=== PATIENT | male | born 1965 | race Caucasian/White ===

== ENCOUNTER → 2017-12-12 11:13 | Outpatient (CLI) | payer OTHER, SELFPAY ==
[2017-12-12 13:44] LABS: ALB/GLOB Ratio 0.9 RATIO (0.9-2.4); AST(SGOT) 27 U/L (15-37); Alanine Aminotransfer ALT/SGPT 58 U/L (16-61); Albumin, Serum 3.6 g/dL (3.2-5.0); Alkaline Phosphatase 82 U/L (45-117); Anion Gap 4 (5-15); BUN 16 mg/dL (7-18); BUN/Creat Ratio 19.3 RATIO (10-20); Calcium,Total 8.7 mg/dL (8.5-10.1); Chloride 104 mmol/L (98-107); Cholesterol 283 mg/dL (200); Creatinine, Serum 0.83 mg/dL (0.70-1.30); EST Glomerular Filtration Rate 103 mL/min (>60); Est Glom Filt Rate - Afr Amer 125 mL/min (>60); Globulin 3.8 g/dL (2.2-4.2); Glucose 100 mg/dL (74-106); High Density Lipoprotein 42 mg/dL; Potassium 4.3 mmol/L (3.5-5.1); Protein, Total 7.4 g/dL (6.4-8.2); Sodium Level 139 mmol/L (136-145); Triglycerides 250 mg/dL; Very Low Density Lipoprotein 50 mg/dL (5-40)
== END ==
PROVIDERS: Family Provider Family Medicine; PCP Family Medicine; Visit Provider Family Medicine
DX: E16.2 Hypoglycemia, unspecified (principal); E78.5 Hyperlipidemia, unspecified
CPT/HCPCS: 36415; 80053; 80061

== ENCOUNTER 2018-01-23 05:42 | Day surgery (SDC) | payer OTHER, SELFPAY ==
[2018-01-23 06:05] VITALS: BP 133/93; PULSE 78; RESP 18; TEMP 36.4; O2SAT 97; BMI 26.8
--- NOTE | 2018-01-23 06:07 | PCM.HP.STD ---
Problem List (1) Screening for intestinal cancer Status: Acute History of Present Illness Date of Admission: 01/23/18 The patient is a 52 year old M who presents today for a screening colonoscopy. He has never had a previous examination. He denies bright red blood per rectum or melena. No abdominal pain. No change of bowel habits. No unexpected weight loss. There is no personal or family history of colon polyps or colon cancer. He otherwise has a good feeling of wellness. He has hyperlipidemia managed on medication. He has never had abdominal surgery. Past Medical History Allergies No Known Allergies Allergy (Verified 01/23/18 06:03) Home Medications: Ambulatory Orders Medication Instructions Recorded Simvastatin 10 mg PO DAILY 10/13/14 Cetirizine HCl [Zyrtec] 10 mg PO DAILY 01/22/18 Smoking Status: Never smoker Review of Systems Constitutional: Denies: Weight Change Eyes: Denies: Blurred vision, Vision Change HEENT: Denies: Ear Pain, Eye Pain Cardiovascular: Denies: Chest Pain, Claudication Respiratory: Denies: Cough, Shortness of Breath Gastrointestinal: Denies: Hematemesis, Hematochezia Genitourinary: Denies: Dysuria, Hematuria Musculoskeletal: Denies: Leg Pain Skin: Denies: Jaundice Neurological: Denies: Confusion Psychiatric: Denies: Depression Endocrine: Denies: Change in Body Habitus Hematologic/ Lymphatic: Denies: Easy Bleeding VTE Information - Inpt Only VTE Present on Admission: No Patient Problems: Active and Suspected Problems Screening for intestinal cancer (Acute) - Physical Exam General: Alert, Oriented x3, Cooperative, No apparent distress HEENT: Atraumatic Oral: Moist Mucosa Neck: Supple, Negative Carotid Bruits Lungs: Clear to auscultation Cardiovascular: Regular rate, Regular Rhythm Abdomen: Bowel Sounds Present, Soft, Non Tender, Non-Distended Extremities: No clubbing Skin: No rashes Musculoskeletal: No Tenderness to Palpation of Joints or Extremities Lymphatic: No Cervical, Supraclavicular, or Inguinal Adenopathy Neurological: Cranial nerves II-XII grossly intact Psych/Mental Status: Normal Affect Assessment/Plan Active and Suspected Problems Screening for intestinal cancer (Acute) I am recommending a screening colonoscopy with possible biopsy or polypectomy. The patient has had an opportunity to ask and have questions answered. He is perform the necessary bowel prep. We will proceed as noted. Primary care physician is Dr. Juan Pablo Beckman, III [place] Beckman M.D., F.A.C.S.
--- NOTE | 2018-01-23 06:47 | PCM.OPRPT ---
Problem List (1) Screening for intestinal cancer Status: Acute Report of Operation Date of Procedure: 01/23/18 Pre-Operative Diagnosis: Screening for intestinal cancer Post-Operative Diagnosis: Normal colonoscopy Surgery/Procedure Performed:: Colonoscopy Description of Surgical Findings:: Timeout and informed consent was obtained. 52-year-old gentleman was taken to the endoscopy suite. He was placed in the left lateral decubitus position. Throughout the procedure he received a total of 100 mg Demerol and 5 mg of Versed as intravenous sedation. Digital rectal exam performed. Tight anal tone. 2+ smooth prostate. No mass lesions. Flexible colonoscope inserted in the rectum advanced quite readily through the colon. Some transabdominal pressure was required to get the scope to go to the cecum. The cecum ileocecal valve area was nicely achieved. Bowel prep was very good. The scope was carefully withdrawn from the ascending transverse descending and sigmoid colon. The scope was retroflexed within the rectum and the anorectal verge inspected. All aspects of the colon appeared to be quite unremarkable. Excess fluid and air was aspirated free the procedure was completed with the patient tolerating it well. Impression Normal colonoscopy This is the patient's first screening colonoscopy. Next screening exam recommended in 10 years. Medications were given at 0631. The procedure was started 0634. The cecum was reached at 0638. The procedure was completed at 0644. Cc: Dr. Juan Pablo Beckman, III [place] Beckman M.D., F.A.C.S. Type of Anesthesia:: IV Sedation
[2018-01-23 06:48] VITALS: BP 120/87; BP 133/93; PULSE 88; RESP 18; TEMP 36.2; O2SAT 94
[2018-01-23 06:55] VITALS: BP 120/88; BP 133/93; PULSE 74; RESP 18; O2SAT 92
[2018-01-23 07:00] VITALS: BP 116/89; BP 133/93; PULSE 82; RESP 18; O2SAT 91
[2018-01-23 07:02] VITALS: BP 120/94; BP 133/93; PULSE 76; RESP 18; TEMP 36.7; O2SAT 95
[2018-01-23 07:10] VITALS: BP 133/93
== END 2018-01-23 07:27 | disposition home or self-care (01) ==
LOC: EN 05:43 → AC 05:44
PROVIDERS: Family Provider Family Medicine; PCP Family Medicine; Visit Provider Surgery
PROC: 0DJD8ZZ Inspection of Lower Intestinal Tract, Via Natural or Artificial Opening Endoscopic (ICD-10-PCS; CPT 45378; principal; 2018-01-23 06:25)
DX: Z12.11 Encounter for screening for malignant neoplasm of colon (principal); E78.5 Hyperlipidemia, unspecified; Z79.899 Other long term (current) drug therapy
CPT/HCPCS: 45378; 99152; 99153; J7120

== ENCOUNTER 2018-08-14 15:00 | Outpatient (RCR) | payer OTHER, SELFPAY ==
--- NOTE | 2018-07-06 14:32 | HP.PTEVAL ---
Patient's Visit Information SHARMIN VIVEROS is a 52 year old M referred to Physical Therapy by Doroteo Gutierrez DPM with a diagnosis of Plantarfascial fibromatosis. Date of Evaluation: 07/06/18 Physical Therapist: Micheal Andrews DPT, OC - Visit Plan Frequency: 2 visits. Plan: call when orthotics in for fitting. - Subjective Subjective: ARch pain L and laterally outside of foot. R one hurts also but not nearly as bad. Comfortable at rest. On feet more than a couple hours makes him ache. was on them and climbing ladders this weekend and it hurt bad. L arch hurt to 5/10 . Lingers for a while. R one not as bad 2/10. Heat and compression feels better. Sleep is OK. Sits down a lot more due to pain, more breaks. 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 - Pain L arch Pain Intensity (Out of 10): 1 Pain Intensity Range: 0, 6 - Objective Walks without antalgia today and transfers easily. AROM B LE WFL, DF R foot to 2 degrees adn L to 4 degrees, moderately tight in gastroc and less so in soleus. No LLD. Slight B pes cavus., normal hindfoot. Tender B PF and palpable fibromas(one Right adn two left) in plantar fascia whcih mimic his moderately tender areas. 4+/5 adnkle strength except L eversion whcih is 4/5, no pain. Sensation LE WNL to gross light touch. - Goals Goal 1:: fit for and I in the use of orthotics. Goal Time Frame: 2-4 Weeks - Rehabilitation Potential Physical Therapy Diagnosis: plantar fascia fibromatoisis, appropriate for orthotics. Rehabilitation Potential: Fair - Anticipated Interventions Patient/Client Instruction: Educate patient on: Condition, Plan of Care For the Purpose of:: To decrease pain, To increase tolerance to activity/condition/position Orthotics: Shoe insert Comment: orthoics custom For the Purpose of:: To decrease pain, To increase tolerance to activity/condition/position Thank you for the opportunity to evaluate your patient. For Medicare and Medicare HMO plans, please review the plan of care and approve it. It will need to be FAXED BACK to us at [phone] for Medicare purposes. Please let me know if there are questions or concerns regarding this plan of care. Physician Signature: Date:
--- NOTE | 2018-08-14 15:19 | HP.PTDCSUM ---
HP - PT D/C Summary It has been my pleasure to treat SHARMIN VIVEROS under orders from Doroteo Gutierrez DPM, for the diagnosis of Plantarfascial fibromatosis for a total of 2 visit(s). Discharge Date: Please see the following information for a summary of their discharge status. - Subjective Subjective: Bought new shoes just for these orthotics. - Pain L arch Pain Intensity (Out of 10): 1 - Objective Objective/Function: Good fit in shoe. [place] some pressure medially on heel but recommended he try to get used to it and call if it needs modified, shaved or cut off. - Goals Goal 1:: fit for and I in the use of orthotics. Goal Progress: Goal Met - Plan Plan: D/C to home orthotic use. - D/C Information If there are questions or concerns regarding this patient's physical therapy, please feel free to call me at [phone]. Thank you for the referral of this patient. Sincerely, Micheal Andrews, DPT, OC
== END 2018-08-14 19:00 | disposition home or self-care (01) ==
LOC: PT 15:00
PROVIDERS: Family Provider Family Medicine; PCP Family Medicine; Referring Provider Podiatrist Foot & Ankle Surgery; Visit Provider Podiatrist Foot & Ankle Surgery
DX: M72.2 Plantar fascial fibromatosis (principal)
CPT/HCPCS: 97161; 97760; 97763

== ENCOUNTER → 2018-11-26 06:19 | Outpatient (CLI) | payer OTHER, SELFPAY ==
[2018-11-26 08:19] LABS: ALB/GLOB Ratio 0.9 RATIO (0.9-2.4); AST(SGOT) 26 U/L (15-37); Alanine Aminotransfer ALT/SGPT 49 U/L (16-61); Albumin, Serum 3.6 g/dL (3.2-5.0); Alkaline Phosphatase 91 U/L (45-117); Anion Gap 5 (5-15); BUN 14 mg/dL (7-18); BUN/Creat Ratio 16.3 RATIO (10-20); Calcium,Total 8.5 mg/dL (8.5-10.1); Chloride 107 mmol/L (98-107); Cholesterol 220 mg/dL (200); Creatinine, Serum 0.86 mg/dL (0.70-1.30); EST Glomerular Filtration Rate 99 mL/min (>60); Est Glom Filt Rate - Afr Amer 120 mL/min (>60); Globulin 3.8 g/dL (2.2-4.2); Glucose 111 mg/dL (74-106); High Density Lipoprotein 33 mg/dL; Potassium 4.1 mmol/L (3.5-5.1); Protein, Total 7.4 g/dL (6.4-8.2); Sodium Level 139 mmol/L (136-145); Triglycerides 231 mg/dL; Very Low Density Lipoprotein 46 mg/dL (5-40)
== END ==
PROVIDERS: Family Provider Family Medicine; PCP Family Medicine; Referring Provider Family Medicine; Visit Provider Family Medicine
DX: E78.5 Hyperlipidemia, unspecified (principal)
CPT/HCPCS: 36415; 80053; 80061

== ENCOUNTER 2019-07-16 06:57 | Emergency (ER) | payer OTHER, SELFPAY ==
[2019-07-16 06:58] VITALS: BP 143/93; PULSE 91; RESP 16; TEMP 36.6; O2SAT 97; BMI 27.7
--- NOTE | 2019-07-16 07:18 | CT_ITS ---
STUDY: CT BRAIN WITHOUT CONTRAST REASON FOR EXAM: Male, 53 years old. LEFT FACIAL TINGLING RADIATION DOSAGE (If Supplied By Facility): CTDIvol = ( 44.99 ) mGy, DLP = ( 796.11 ) mGycm TECHNIQUE: Transaxial CT imaging of the brain was performed without administration of intravenous contrast material. Individualized dose optimization techniques were used for this CT. COMPARISON: No relevant priors. FINDINGS: Normal soft tissue structures. Normal calvarium. Normal size ventricles and extra-axial spaces for the patient's age. Normal white matter tracts of the cerebral hemispheres. Normal basal ganglia and thalami. Normal brainstem. Normal cerebellum. There is no intracranial hemorrhage. There are no findings of an acute ischemic infarction. Normal visualized paranasal sinuses. CT/Brain/Head without Contrast IMPRESSION: Normal unenhanced CT scan of the brain. Electronically Signed: Wero Thacker MD at 8:01 EDT Tel , Service support ,
--- NOTE | 2019-07-16 08:11 | ED.DCSUM_ITS ---
- ER Visit Summary Date of Service: 07/16/19 Chief Complaint: Acute on chronic hypertension and subjective left facial tingling History of Present Illness: The patient is a 53 M past medical history of hypertension high cholesterol. No cardiac history nor any history of TIA or stroke. 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 And states that he has had subjective left facial tingling since that time. No headache. No chest pain. No trouble using his arms or legs. No trouble with his speech. No trouble with his balance. No visual change. Physical Examination: White male no acute distress initial blood pressure 143/93. He does not look septic or toxic. H EENT exam normal. Pupils are unreactive light. Extra motions are intact. No facial droop. Tongue midline. Normal speech. Neck nontender. Lungs clear to auscultation bilaterally. Heart regular rhythm no murmur. Abdomen soft nontender. Patient moving all 4 extremities. Neurovascularly intact. 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 Equal symmetrical dorsi plantarflexion 5/5. Fingertip to nose [id number] within normal limits. Back nontender. Skin unremarkable. Neurologic exam is completely normal. NIH is 0. He really has no objective findings on neurologic exam. He can wrinkle his forehead. His ocular motions are intact. There is no facial droop. He has normal speech. Subjectively he has tight sensation in both sides of his face. Motor and sensory of both upper and lower extremities are unremarkable. And he got up and walk without any difficulty. No ataxia. No trouble with his balance or strength. Test Results: CAT scan of his brain without contrast read by the radiologist reviewed by me was read as normal. Emergency Department Course and Treatment: Exam at 8:10 AM patient is doing well. His exam is unchanged. His neurologic exam remains completely normal with again an NIH of 0. Treatment Plan: Follow-up with his primary care physician. Return if worse. Disposition: Discharge Impression: Acute on chronic hypertension Subjective left facial paresthesia of uncertain etiology This note was generated with [employer] software. It may contain incorrect words, spelling, and punctuation that were not noted in review of the chart prior to signing ED Disposition - Plan for ED Patient: Referrals: Juan Pablo Beckman III, MD [Primary Care Provider] -
--- NOTE | 2019-07-16 08:14 | ED.DEP ---
ED Disposition - Plan for ED Patient: Disposition: Home or Assisted Living Instructions: HYPERTENSION, Established Referrals: Juan Pablo Beckman III, MD [Primary Care Provider] - 1 Week Additional Instructions: Follow-up with your doctor in a week or so with daily blood pressure readings to see if you need to do any medication adjustments or not. The facial tingling is unremarkable on exam at this time. You have a otherwise normal neurologic exam. Your CAT scan was normal. If you develop trouble moving her arms or legs or weakness in your arms or legs need to return. Any trouble speaking with your vision again need to be seen. However most likely this will resolve.
== END 2019-07-16 08:19 | disposition home or self-care (01) ==
PROVIDERS: Emergency Provider Emergency Medicine; Family Provider Family Medicine; PCP Family Medicine
DX: I10 Essential (primary) hypertension (principal); R20.2 Paresthesia of skin; E78.00 Pure hypercholesterolemia, unspecified; Z79.899 Other long term (current) drug therapy
CPT/HCPCS: 70450; 99282

== ENCOUNTER → 2020-07-03 07:03 | Outpatient (CLI) | payer OTHER, SELFPAY ==
[2020-07-03 08:29] LABS: ALB/GLOB Ratio 0.9 RATIO (0.9-2.4); AST(SGOT) 42 U/L (15-37); Alanine Aminotransfer ALT/SGPT 73 U/L (16-61); Albumin, Serum 3.5 g/dL (3.2-5.0); Alkaline Phosphatase 97 U/L (45-117); Anion Gap 6 (5-15); BUN 14 mg/dL (7-18); BUN/Creat Ratio 16.5 RATIO (10-20); Calcium,Total 8.9 mg/dL (8.5-10.1); Chloride 106 mmol/L (98-107); Cholesterol 216 mg/dL (200); Creatinine, Serum 0.85 mg/dL (0.70-1.30); EST Glomerular Filtration Rate 100 mL/min (>60); Est Glom Filt Rate - Afr Amer 121 mL/min (>60); Globulin 3.7 g/dL (2.2-4.2); Glucose 118 mg/dL (74-106); High Density Lipoprotein 48 mg/dL; Potassium 3.8 mmol/L (3.5-5.1); Protein, Total 7.2 g/dL (6.4-8.2); Sodium Level 140 mmol/L (136-145); Triglycerides 179 mg/dL; Very Low Density Lipoprotein 36 mg/dL (5-40)
== END ==
PROVIDERS: PCP Family Medicine; Referring Provider Family Medicine; Visit Provider Family Medicine
DX: I10 Essential (primary) hypertension (principal); E78.5 Hyperlipidemia, unspecified
CPT/HCPCS: 36415; 80053; 80061

== ENCOUNTER 2020-12-20 13:36 | Outpatient (RCR) | payer OTHER, SELFPAY | END 2021-02-20 23:59 | LOC: IMMUN 13:36 | PROVIDERS: PCP Family Medicine; Visit Provider Family Medicine | DX: Z23 Encounter for immunization (principal) | CPT/HCPCS: 0001A; 0002A; 91300 ==

== ENCOUNTER → 2021-07-13 10:30 | Outpatient (CLI) | payer OTHER, SELFPAY ==
[2021-07-13 12:49] LABS: Anion Gap 8 (5-15); BUN 12 mg/dL (7-18); BUN/Creat Ratio 13.2 RATIO (10-20); Calcium,Total 8.7 mg/dL (8.5-10.1); Chloride 106 mmol/L (98-107); Cholesterol 196 mg/dL (200); Creatinine, Serum 0.91 mg/dL (0.70-1.30); EST Glomerular Filtration Rate 92 mL/min (>60); Est Glom Filt Rate - Afr Amer 111 mL/min (>60); Glucose 117 mg/dL (74-106); High Density Lipoprotein 46 mg/dL; PSA,Total - Annual Screen 1.21 ng/mL (0.00-4.00); Potassium 4.1 mmol/L (3.5-5.1); Sodium Level 139 mmol/L (136-145); Thyroid Stim Hormone (TSH) 2.13 uIU/mL (0.358-3.74); Triglycerides 164 mg/dL; Very Low Density Lipoprotein 33 mg/dL (5-40)
== END ==
PROVIDERS: PCP Family Medicine; Referring Provider Family Medicine; Visit Provider Family Medicine
DX: Z00.00 Encounter for general adult medical examination without abnormal findings (principal); Z12.5 Encounter for screening for malignant neoplasm of prostate; I10 Essential (primary) hypertension
CPT/HCPCS: 36415; 80048; 80061; 84153; 84443; G0103

== ENCOUNTER → 2022-08-12 | Outpatient (CLI) | payer OTHER, SELFPAY ==
[2022-08-12 08:09] LABS: Hemoglobin A1c 5.8 % (3.8-5.6)
[2022-08-12 08:37] LABS: ALB/GLOB Ratio 0.9 RATIO (0.9-2.4); AST(SGOT) 29 U/L (15-37); Alanine Aminotransfer ALT/SGPT 55 U/L (16-61); Albumin, Serum 3.4 g/dL (3.2-5.0); Alkaline Phosphatase 85 U/L (45-117); Anion Gap 6 (5-15); BUN 14 mg/dL (7-18); BUN/Creat Ratio 14.7 RATIO (10-20); Calcium,Total 8.7 mg/dL (8.5-10.1); Chloride 106 mmol/L (98-107); Cholesterol 296 mg/dL (200); Creatinine, Serum 0.96 mg/dL (0.70-1.30); EST Glomerular Filtration Rate 86 mL/min (>60); Est Glom Filt Rate - Afr Amer 105 mL/min (>60); Globulin 3.7 g/dL (2.2-4.2); Glucose 117 mg/dL (74-106); High Density Lipoprotein 38 mg/dL; Protein, Total 7.1 g/dL (6.4-8.2); Sodium Level 137 mmol/L (136-145); Thyroid Stim Hormone (TSH) 6.61 uIU/mL (0.358-3.74); Triglycerides 441 mg/dL
== END | disposition home or self-care (01) ==
PROVIDERS: PCP Family Medicine; Referring Provider Family Medicine; Visit Provider Family Medicine
DX: Z00.00 Encounter for general adult medical examination without abnormal findings (principal); E78.5 Hyperlipidemia, unspecified
CPT/HCPCS: 36415; 80053; 80061; 83036; 84403; 84443

== ENCOUNTER → 2022-12-04 | Outpatient (CLI) | payer OTHER, SELFPAY ==
[2022-12-04 08:37] LABS: Cholesterol 203 mg/dL (200); Free T3 3.5 pg/mL (2.18-3.98); High Density Lipoprotein 40 mg/dL; T4 Free Direct 0.95 ng/dL (0.76-1.46); Thyroid Stim Hormone (TSH) 5.34 uIU/mL (0.358-3.74); Triglycerides 195 mg/dL; Very Low Density Lipoprotein 39 mg/dL (5-40)
== END | disposition home or self-care (01) ==
LOC: LAB 06:35
PROVIDERS: PCP Family Medicine; Referring Provider Family Medicine; Visit Provider Family Medicine
DX: E78.5 Hyperlipidemia, unspecified (principal); E03.9 Hypothyroidism, unspecified
CPT/HCPCS: 36415; 80061; 84439; 84443; 84481

== ENCOUNTER → 2023-07-04 | Outpatient (CLI) | payer OTHER, SELFPAY ==
--- NOTE | 2023-07-06 12:36 | STRESSREP ---
Stress Test Report Date: 07/04/2023 Procedure: Exercise tolerance test/imaging study Indications: Chest pain Consent: Per the patient Procedure: The patient exercised on a Linus protocol for 10 minutes and 16 seconds achieving a peak heart rate of 153 bpm (93% predicted maximal heart rate) with a peak blood pressure 160/70 mmHg and a peak MET capacity of 13.4 METs. The baseline ECG demonstrated normal sinus rhythm. The peak exercise ECG demonstrated no significant ischemic changes. EKG during recovery revealed no significant ischemic changes [There were no cardiac dysrhythmias pretest, during exercise, or recovery]. The functional capacity was considered excellent for age. There was [no complaint of chest discomfort during exercise or recovery]. The examination was discontinued secondary to achieving target heart rate. Impression: 1. Technically adequate (percent predicted maximal heart rate greater than 85%) exercise tolerance test 2. Stress test is negative for exercise-induced EKG changes of ischemia 3. The test test is negative for exercise-induced chest pain 4. Functional capacity is excellent for age 5. Nuclear images pending Myocardial perfusion imaging study: Technique: The patient was injected with 11 mCi of technetium 99m Cardiolite and subsequently rest SPECT Cardiolite nuclear imaging was obtained in the horizontal long, vertical long, and short axis views. The patient exercised on a Linus protocol. Please see above for details. The patient was injected with 34.2 mCi of technetium 99m Cardiolite and subsequently stress SPECT Cardiolite nuclear imaging was obtained in the horizontal long, vertical long, and short axis views. A gated Cardiolite study at peak stress was obtained. Interpretation: Rest and stress SPECT Cardiolite nuclear imaging status post realignment, normalization, and attenuation correction, demonstrates no evidence of significant ischemia or infarction. The gated Cardiolite study demonstrates no significant regional wall motion abnormalities. The reported LVEF is 59%. Impression: 1. There is no evidence of significant ischemia or infarction. 2. The gated Cardiolite study reports an LVEF of 59%. This note was generated with [employer] software. It may contain incorrect words, spelling, and punctuation that were not noted in checking the note before signing.
== END | disposition home or self-care (01) ==
PROVIDERS: PCP Family Medicine; Referring Provider Family Medicine; Visit Provider Family Medicine
DX: R06.02 Shortness of breath (principal); R07.9 Chest pain, unspecified
CPT/HCPCS: 78452; 93017; A9500; A4216

== ENCOUNTER → 2023-07-28 | Outpatient (CLI) | payer OTHER, SELFPAY ==
[2023-07-28 07:45] LABS: Anion Gap 6 (5-15); BUN 15 mg/dL (7-18); BUN/Creat Ratio 15.9 RATIO (10-20); Calcium,Total 8.5 mg/dL (8.5-10.1); Chloride 105 mmol/L (98-107); Cholesterol 209 mg/dL (200); Creatinine, Serum 0.94 mg/dL (0.70-1.30); EST Glomerular Filtration Rate 87 mL/min (>60); Est Glom Filt Rate - Afr Amer 106 mL/min (>60); Glucose 128 mg/dL (74-106); High Density Lipoprotein 46 mg/dL; Potassium 3.7 mmol/L (3.5-5.1); Sodium Level 140 mmol/L (136-145); Thyroid Stim Hormone (TSH) 4.73 uIU/mL (0.358-3.74); Triglycerides 214 mg/dL; Very Low Density Lipoprotein 43 mg/dL (5-40)
== END | disposition home or self-care (01) ==
LOC: LAB 06:34
PROVIDERS: PCP Family Medicine; Referring Provider Family Medicine; Visit Provider Family Medicine
DX: I10 Essential (primary) hypertension (principal); R06.02 Shortness of breath
CPT/HCPCS: 36415; 80048; 80061; 84443

== ENCOUNTER → 2024-05-26 | Outpatient (CLI) | payer OTHER, SELFPAY ==
[2024-05-26 08:39] LABS: Anion Gap 5 (5-15); BUN 17 mg/dL (7-18); Chloride 106 mmol/L (98-107); Cholesterol 198 mg/dL (200); Creatinine, Serum 0.85 mg/dL (0.70-1.30); EST Glomerular Filtration Rate 98 mL/min (>60); Est Glom Filt Rate - Afr Amer 119 mL/min (>60); Glucose 131 mg/dL (74-106); High Density Lipoprotein 46 mg/dL; Potassium 3.9 mmol/L (3.5-5.1); Sodium Level 138 mmol/L (136-145); Triglycerides 166 mg/dL; Very Low Density Lipoprotein 33 mg/dL (5-40)
== END | disposition home or self-care (01) ==
LOC: LAB 06:42
PROVIDERS: PCP Family Medicine; Referring Provider Family Medicine; Visit Provider Family Medicine
DX: I10 Essential (primary) hypertension (principal)
CPT/HCPCS: 36415; 80048; 80061

== ENCOUNTER → 2024-05-27 | Outpatient (CLI) | payer OTHER, SELFPAY ==
--- NOTE | 2024-05-27 16:55 | RAD_ITS ---
INDICATION: INJURY EXAMINATION/TECHNIQUE: X-RAY - RIGHT XR Shoulder Min 2 Views COMPARISON: No previous relevant examinations for comparison. FINDINGS: SOFT TISSUES: No soft tissue swelling or gas. No radiopaque foreign body. BONES/JOINTS: 1. No acute fracture or subluxation.. Normal alignment. Preservation of the joint space.. No sclerotic or destructive changes observed. 2. There is normal glenohumeral motion. There is normal alignment of the acromioclavicular joint. 3. The clavicle, acromion, scapula and rib cage have normal appearance. RAD/Shoulder min 2 Views IMPRESSION: 1. No fracture malalignment or focal bony or joint space abnormality involving the shoulder.. Electronically Signed: Black Gutiérrez MD at 19:57 EDT ,
== END | disposition home or self-care (01) ==
PROVIDERS: PCP Family Medicine; Referring Provider Family Medicine; Visit Provider Family Medicine
DX: S49.91XA Unspecified injury of right shoulder and upper arm, initial encounter (principal)
CPT/HCPCS: 73030

== ENCOUNTER → 2024-07-26 | Outpatient (CLI) | payer OTHER, SELFPAY | END | disposition home or self-care (01) | PROVIDERS: PCP Family Medicine; Referring Provider Family Medicine; Visit Provider Family Medicine | DX: S49.91XA Unspecified injury of right shoulder and upper arm, initial encounter (principal) | CPT/HCPCS: 73221 ==

== ENCOUNTER 2024-09-27 16:11 | Outpatient (RCR) | payer OTHER, SELFPAY ==
--- NOTE | 2024-10-01 13:37 | HP.PTEVAL ---
Patient's Visit Information Visit Information Visit Information: SHARMIN IVVEROS is a 58 year old M referred to Physical Therapy by Dr. 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 Date of Evaluation: 09/27/24 Physical Therapist: Luis Akbar DPT Visit Plan Frequency: 1x/Week Duration: 6 Weeks Plan: 1) RTC strengthening, periscapular strengthening. 2) DFM to biceps tendon 3) Progress end range motion of R shoulder. Subjective Subjective: Pt. is here today for his initial evaluation with diagnosis of superior glenoid labrum lesion of R shoulder. Pt. reports having an MRI and having a labral tear. He reports no N/T in either UE. Pt. reports increased pain while sleeping and with over head movements. Pt. is able to work with out much limitation. Pt. reports not doing as much with his shoulder secondary to increased pain. Pt. has refrained from much [place] activities secondary to pain. Pt. reports no major grinding in his shoulder with activities. Pain located at anterior shoulder with above activities. Pt. is hopeful to reduce symptoms in order to complete all work and daily activities without limitations. Pain R shoulder: Pain Intensity (Out of 10): 2 Pain Intensity Range: 2 and 6 Objective Objective: POSTURE: Pt. has fairly normal posture in stance. Pt. has slight increased in thoracic kyphosis and rounded shoulders, but able to improve with VCing. PALPATION: Pt. has tenderness to anterior aspects of R shoulder along long bicipital groove. NEURO: normal throughout. ROM: R shoulder: flexion 170deg increase NW at end range, abd 165deg increase at end range. functional ER C4, functional IR L3. Pt. has mild increase in symptoms with both functional ER/IR motions. R shoulder PROM: flexion 175deg increase NW, abd 175deg increase NW, ER at 90de of abd 85deg, IR at 90deg of abd 40deg increase nW. MMT: R shoulder: flexion 15.4# increase NW, abd 13.9#, ext 23.9#, ER 11.2#, IR 16.8#. Balance/Special Test Scores Quick DASH Score: 11.3625 Goals Goal 1:: LTG: Pt. to be I with HEP. Goal Time Frame: 4-6 Weeks Goal 2:: LTG: Pt. to have full R shoulder ROM without increase in symptoms. Goal Time Frame: 4-6 Weeks Goal 3:: LTG: Pt. to have symmetrical strength between BUEs without increase in symptoms. Goal Time Frame: 4-6 Weeks Goal 4:: LTG: Pt. to complete all work and recreational activities without increase in symptoms. Goal Time Frame: 4-6 Weeks Rehabilitation Potential Physical Therapy Diagnosis: Pt. has signs and symptoms consistent with superior glenoid labral tear. Pt. has some slight loss of end range of motion and some weakness in his R shoulder. He would benefit from PT to address the above limitations progressing back to all recreational and work activities without limitations. Rehabilitation Potential: Good Anticipated Interventions Patient/Client Instruction: Educate patient on: Condition, Plan of Care, Risk Factors and Benefits of Fitness Program For the Purpose of:: To foster healthy habits, To improve decision making, To facilitate caregiver knowledge, To improve self management, To prevent re-injury and To improve ability to perform tasks related to life management Therapeutic Exercise to Include: Strength training, Power training, Postural training, Flexibilty training, Passive ROM, Active ROM and Scapular Strength/Stabilization For the Purpose of:: To decrease pain, To increase ROM, To improve nutrient delivery to tissue, To increase oxygenation perfusion, To improve muscle performance and motor function, To improve ability to perform ADL's and To increase tolerance to activity/condition/position Text: Thank you for the opportunity to evaluate your patient. For Medicare and Medicare HMO plans, please review the plan of care and approve it. It will need to be FAXED BACK to us at [phone] for Medicare purposes. For Medicare only, by signing this I certify the plan of care. Please let me know if there are questions or concerns regarding this plan of care. Physician Signature: Date:
== END 2024-09-27 19:00 | disposition home or self-care (01) ==
LOC: PT 16:11
PROVIDERS: PCP Family Medicine; Visit Provider Student in an Organized Health Care Education/Training Program
DX: S43.431D Superior glenoid labrum lesion of right shoulder, subsequent encounter (principal); S46.011D Strain of muscle(s) and tendon(s) of the rotator cuff of right shoulder, subsequent encounter; M19.011 Primary osteoarthritis, right shoulder
CPT/HCPCS: 97161

== ENCOUNTER → 2024-11-10 | Outpatient (CLI) | payer OTHER, SELFPAY ==
[2024-11-10 15:26] LABS: Absolute Lymphocyte Count 2.68 X10^3/uL (0.83-4.51); Absolute Neutrophil Count 7.2 X10^3/uL (2.0-7.7); Basophil# 0.05 X10^3/uL; Basophil% 0.5 % (0-1); Eosinophil# 0.08 X10^3/uL; Eosinophils% 0.7 % (0-5); Hematocrit 48.3 % (40-54); Hemoglobin 15.5 g/dL (13.0-16.5); Lymphocyte # 2.68 X10^3/ul (0.83-4.51); Lymphocyte % 24.7 % (19-41); Mean Corp Hgb Conc 32.1 g/dL (32-36); Mean Corpuscular Hgb 28.1 pg (27.0-32.0); Mean Corpuscular Volume 87.7 fL (80-94); Mean Platelet Vol. 11.2 fl (6.2-12.0); Monocyte# 0.75 X10^3/uL; Monocyte% 6.9 % (0-10); NRBC Flagged by Analyzer 0 % (0-5); Neutrophil % 66.3 % (47-70); Platelet Count 230 K/mm3 (150-450); RBC Distribution Width CV 12.9 % (11.6-14.6); RBC Distribution Width SD 41.8 fl (35.1-43.9); Red Blood Count 5.51 M/mm3 (4.6-6.2); White Blood Count 10.9 K/mm3 (4.4-11.0)
[2024-11-10 15:50] LABS: ALB/GLOB Ratio 1.3 RATIO (0.9-2.4); AST(SGOT) 30 U/L (<=37); Alanine Aminotransfer ALT/SGPT 60 U/L (<=46); Alkaline Phosphatase 72 U/L (40-129); Anion Gap 12 (5-15); BUN 16 mg/dL (4-19); BUN/Creat Ratio 21.3 RATIO (10-20); Calcium 9.4 mg/dL (7.6-11.0); Carbon Dioxide 23.2 mmol/L (22.0-29.0); Chloride 103 mmol/L (96-108); Creatinine, Serum 0.7 mg/dL (0.8-1.3); EST Glomerular Filtration Rate 106 (>60); Globulin 3.1 g/dL (2.2-4.2); Glucose 103 mg/dL (70-99); Lipase 38 U/L (13-75); Potassium 4.2 mmol/L (3.3-5.1); Sodium Level 138 mmol/L (133-145); Total Bilirubin 0.46 mg/dL (0.00-1.30)
== END | disposition home or self-care (01) ==
LOC: MFPLAB 12:24
PROVIDERS: PCP Family Medicine; Referring Provider Family Medicine; Visit Provider Family Medicine
DX: R10.9 Unspecified abdominal pain (principal)
CPT/HCPCS: 36415; 80053; 83690; 85025

== ENCOUNTER → 2024-11-19 | Outpatient (CLI) | payer OTHER, SELFPAY ==
--- NOTE | 2024-11-19 07:23 | US_ITS ---
PROCEDURE: ABDOMEN COMPLETE REASON FOR EXAM: ABD PAIN COMPARISON: None FINDINGS: Liver: Unremarkable echotexture. 15.7 cm in length. Gallbladder: Question a tiny amount of layering sludge versus artifact. No visualized stones, sludge, wall thickening or pericholecystic fluid. Reportedly, sonographic Alcaraz's was negative. Common bile duct: Unremarkable, CBD measures 5 mm. Pancreas: Partially obscured by bowel gas. Visualized portions are sonographically unremarkable. Right kidney: 11.2 cm in length. 0.8 x 0.7 x 0.7 cm cyst inferiorly. Left kidney: 10.7 cm in length. Unremarkable. Spleen: Mild splenomegaly, 13.6 cm greatest dimension. Aorta: Unremarkable, maximum diameter 2.4 cm. IVC: Visualized portions are unremarkable. Other: No visualized free fluid. US/Abdomen Complete IMPRESSION: 1. No acute abnormality. If unexplained symptoms persist, consider CT. 2. Mild splenomegaly. 3. Additional description as above. Reading Location: [id number]
== END | disposition home or self-care (01) ==
LOC: US 07:22
PROVIDERS: PCP Family Medicine; Referring Provider Family Medicine; Visit Provider Family Medicine
DX: R10.9 Unspecified abdominal pain (principal)
CPT/HCPCS: 76700

== ENCOUNTER → 2025-05-20 | Outpatient (CLI) | payer OTHER, SELFPAY ==
--- OUTSIDE RECORDS SUMMARY | 2025-05-20 06:35 | XMS RPT_ITS | CCD ---
Author Organization [facility] CliniSyme Care Team Providers Care Dust Collector Treater Name Role Phone Carlene Hall LPN Unavailable Unavailab Carlene Aj LPN Unavailable Unavailab Dr. Catalino Marti Primary Care Provider [phone] Valerie, Dr. Bae Referring Provider [phone] Sara Lo Attending Provider [phone] Valerie, Dr. Bae Other Provider Valerie, Dr. Bae Primary Care Provider [phone] Valerie, Dr. Bae Referring Provider [phone] Sara Lo Attending Provider [phone] Valerie, Dr. Bae Other Provider Valerie OSPINA, Dr. Bae Primary Care Provider [phone] Dr. Alvaro Lewis DO Attending Provider Valerie OSPINA, Dr. Bae Referring Provider [phone] Neelam RESOURCE CONSERVATION MANAGER-CFelipe Attending Provider Valerie OSPINA, Dr. Bae Attending Provider [phone] Catalino Padilla Referring Unavailable Padilla, Catalino Attending Unavailable Padilla, Catalino Primary Care Unavailable Felipe Richter NP Attending Unavailable Padilla, Catalino Primary Care Unavailable Padilla, Catalino Referring Unavailable Padilla, Catalino Primary Care Unavailable Padilla, Catalino Referring Unavailable Padilla, Catalino Attending Unavailable Padilla, Catalino Primary Care Unavailable Padilla, Catalino Referring Unavailable Padilla, Catalino Attending Unavailable Padilla, Catalino Primary Care Unavailable Alvaro Lewis Attending Unavailable Padilla, Catalino Primary Care Unavailable Padilla, Catalino Referring Unavailable Padilla, Catalino Attending Unavailable Padilla, Catalino Primary Care Unavailable Padilla, Catalino Referring Unavailable Padilla, Catalino Attending Unavailable Medications Current Medications Medication Drug Class(es) Dates Sig (Normalized) Sig (Original) amLODIPine 5 mg oral tablet (6 sources) Dihydropyridine Calcium Channel Jordyn Start: 07-16-2019 take 1 tablet by mouth once daily Amlodipine 5 MG tablet Active 5 mg PO DAILY July 16, 2019 12:00am azithromycin 250 mg oral tablet (5 sources) Macrolide Antimicrobial Start: 10-31-2024 Azithromycin (Zithromax Z-Kishore) 250 mg tablet Active 0 PO .COMPLEX 6 0 October 31, 2024 1:00am For 250 mg dose pack: take 500 mg today (day 1), then 250 mg for 4 days (days 2-5) PO Start: 02-19-2017 End: 02-24-2017 ZITHROMAX Z-KISHORE 250 MG TABS Take 2 pills on day 1 then 1 pill days 2 through 5 AZITHROMYCIN [id number] Anirudh SHAY cetirizine hydrochloride 10 mg oral capsule (6 sources) Histamine-1 Receptor Antagonist Start: 01-22-2018 take 1 capsule by mouth once daily Cetirizine (Zyrtec) 10 MG capsule Active 10 mg PO DAILY January 22, 2018 12:00am lisinopril 5 mg oral tablet (6 sources) Angiotensin Converting Enzyme Inhibitor Start: 07-16-2019 take 1 tablet by mouth once daily Lisinopril 5 MG tablet Active 5 mg PO DAILY July 16, 2019 12:00am simvastatin 20 mg oral tablet (8 sources) HMG-CoA Reductase Inhibitor Start: 06-06-2014 take 20 mg by mouth once daily Simvastatin Active 20 mg PO DAILY October 13, 2014 1:00am Completed/Discontinued Medications Medication Drug Class(es) Dates Sig (Normalized) Sig (Original) benzonatate 100 mg oral capsule (2 sources) Non-narcotic Antitussive Start: 02-17-2017 End: 02-27-2017 TESSALON PERLES 100 MG CAPS Take 1 capsule every 8 hours as needed for cough BENZONATATE [id number] Anirudh SHAY LORATADINE TABS (2 sources) Start: 06-06-2014 CLARITIN TABS as directed LORATADINE TABS [id number] Rody Sheila predniSONE 20 mg oral tablet (3 sources) Start: 10-31-2024 End: 11-05-2024 take 2 tablets by mouth once daily Prednisone 20 mg tablet Discontinued 40 mg PO daily 10 5 0 October 31, 2024 1:00am November 04, 2024 1:00am November 05, 2024 1:11am Problems Active Problems Problem Classification Problem Date Documented Da te Episodic/Chronic Essential hypertension (1 source) Essential (primary) hypertension; Translations: [Essential (primary) hypertension] Onset: 06-15-2024 Chronic Osteoarthritis (1 source) Primary osteoarthritis, right shoulder; Translations: [Primary osteoarthritis, right shoulder] Onset: 04-15-2025 Chronic Other congenital anomalies (2 sources) Other specified congenital deformities of feet; Translations: [Other specified congenital deformities of feet] Onset: 06-06-2014 06-06-2014 Chronic Other screening for suspected conditions (not mental disorders or infectious disease) (6 sources) Patient encounter status; Translations: [Encounter for screening for malignant neoplasm of intestinal tract, unspecified] 01-23-2018 Episodic Sprains and strains (2 sources) Superior glenoid labrum lesion of right shoulder, initial encounter; Translations: [Strain of muscle(s) and tendon(s) of the rotator cuff of right shoulder, initial encounter] Onset: 04-15-2025 Episodic Past or Other Problems Problem Classification Problem Date Documented Da te Episodic/Chronic Abdominal pain (1 source) Unspecified abdominal pain; Translations: [Unspecified abdominal pain] Onset: 12-01-2024 Episodic Other aftercare (2 sources) Follow-up orthopedic assessment; Translations: [Other orthopedic aftercare] Onset: 11-03-2014 11-08-2014 Episodic Other injuries and conditions due to external causes (1 source) Unspecified injury of right shoulder and upper arm, initial encounter; Translations: [Unspecified injury of right shoulder and upper arm, initial encounter] Onset: 08-22-2024 Episodic Other non-traumatic joint disorders (2 sources) Pain in unspecified ankle and joints of unspecified foot; Translations: [Pain in unspecified ankle and joints of unspecified foot] Onset: 06-06-2014 06-06-2014 Episodic Other upper respiratory disease (2 sources) Congestion of nasal sinus; Translations: [Other specified disorders of nose and nasal sinuses] Onset: 02-17-2017 02-17-2017 Episodic Other upper respiratory infections (8 sources) Upper respiratory infection; Translations: [Acute upper respiratory infection, unspecified] Onset: 02-17-2017 02-17-2017 Episodic Results Test Name Value Interpretation Reference Range Facility Abdomen Completeon Abdomen Complete [facility] [address] [place] [address] Abdomen Complete MR#: [id number] Acct: [id number] Name: SHARMIN ALCARAZ Rep #: [id number] : 1965 M 58 From: Jordy Oreilly MD PCP: Dr. Catalino Padilla MD Status: REG CLI Study: Abdomen Complete Date of Exam: 11/19/24 Exam# [id number] Ordering Dr: Catalino Padilla MD PROCEDURE: ABDOMEN COMPLETE REASON FOR EXAM: ABD PAIN COMPARISON: None FINDINGS: Liver: Unremarkable echotexture. 15.7 cm in length. Gallbladder: Question a tiny amount of layering sludge versus artifact. No visualized stones, sludge, wall thickening or pericholecystic fluid. Reportedly, sonographic Alcaraz's was negative. Common bile duct: Unremarkable, CBD measures 5 mm. Pancreas: Partially obscured by bowel gas. Visualized portions are sonographically unremarkable. Right kidney: 11.2 cm in length. 0.8 x 0.7 x 0.7 cm cyst inferiorly. Left kidney: 10.7 cm in length. Unremarkable. Spleen: Mild splenomegaly, 13.6 cm greatest dimension. Aorta: Unremarkable, maximum diameter 2.4 cm. IVC: Visualized portions are unremarkable. Other: No visualized free fluid. US/Abdomen Complete IMPRESSION: 1. No acute abnormality. If unexplained symptoms persist, consider CT. 2. Mild splenomegaly. 3. Additional description as above. Reading Location: [facility] CC: Dr. Catalino Padilla MD Agricultural Production Engineer: Signed Normal [facility] Absolute neutrophil countOrd ered By: Catalino Padilla on 11-10-2024 Neutrophils (Bld) [#/Vol] 7.2 10*3/uL 2.0-7.7 [facility] BUN/creatinine ratioOrdered By: Catalino Padilla on 11-10-2024 Urea nitrogen/Creatinine [Mass ratio] 21.3 mg/mg High 10-20 [facility] Basophil percentageOrdered B y: Catalino Padilla on 11-10-2024 Basophils/100 WBC (Bld) 0.5 % 0-1 [facility] Bilirubin, totalOrdered By: Catalino Padilla on 11-10-2024 Bilirubin [Mass/Vol] 0.46 mg/dL 0.00-1.30 [facility] CBC W/Diff, Automatedon 10-17 Absolute Lymph 2.68 X10 3/uL Normal 0.83-4.51 [facility] Comment on above: Performed By: #### L 501.2450, L500.4050, L100.0100 #### [facility] [address] [place], [address] Absolute Neut 7.2 X10 3/uL Normal 2.0-7.7 [facility] Comment on above: Performed By: #### L 501.2450, L500.4050, L100.0100 #### [facility] [address] [place], [address] Basophils/100 WBC (Bld) 0.5 % Normal 0-1 [facility] Comment on above: Performed By: #### L 501.2450, L500.4050, L100.0100 #### [facility] [address] [place], [address] Eosinophils/100 WBC (Bld) 0.7 % Normal 0-5 [facility] Comment on above: Performed By: #### L 501.2450, L500.4050, L100.0100 #### [facility] [address] [place], [address] Erythrocyte distribution width (RBC) [Ratio] 12.9 % Normal 11.6-14.6 [facility] Comment on above: Performed By: #### L 501.2450, [id number], L100.0100 #### [facility] [address] [place], [address] Hematocrit (Bld) [Volume fraction] 48.3 % Normal 40-54 [facility] Comment on above: Performed By: #### L 501.2450, [id number], L100.0100 #### [facility] [address] [place], [address] Hemoglobin (Bld) [Mass/Vol] 15.5 g/dL Normal 13.0-16.5 [facility] Comment on above: Performed By: #### L 501.2450, L500.4050, L100.0100 #### [facility] [address] [place], [address] IG% 0.900 Normal 0.0-0.9 [facility] Comment on above: Result Comment: IG% - Immature Granulocytes (promyelocytes, myelocytes and metamyelocytes) > 1% indicates that a LEFT SHIFT is Present. Performed By: #### L 501.2450, L500.4050, L100.0100 #### [facility] [address] [place], [address] Lymphocytes/100 WBC (Bld) 24.7 % Normal 19-41 [facility] Comment on above: Performed By: #### L 501.2450, L500.4050, L100.0100 #### [facility] [address] [place], [address] MCH (RBC) [Entitic mass] 28.1 pg Normal 27.0-32.0 [facility] Comment on above: Performed By: #### L 501.2450, L500.4050, L100.0100 #### [facility] [address] [place], [address] MCHC (RBC) [Mass/Vol] 32.1 g/dL Normal 32-36 [facility] Comment on above: Performed By: #### L 501.2450, L500.4050, L100.0100 #### [facility] [address] [place], [address] MCV (RBC) [Entitic vol] 87.7 fL Normal 80-94 [facility] Comment on above: Performed By: #### L 501.2450, L500.4050, L100.0100 #### [facility] [address] [place], [address] Monocytes/100 WBC (Bld) 6.9 % Normal 0-10 [facility] Comment on above: Performed By: #### L 501.2450, L500.4050, L100.0100 #### [facility] [address] [place], [address] Neutrophils/100 WBC (Bld) 66.3 % Normal 47-70 [facility] Comment on above: Performed By: #### L 501.2450, [id number], L100.0100 #### [facility] [address] [place], [address] Nucleated RBC (Bld) [#/Vol] 0 10*3/uL Normal 0-5 [facility] Comment on above: Performed By: #### L 501.2450, [id number], L100.0100 #### [facility] [address] [place], [address] Platelet mean volume (Bld) [Entitic vol] 11.2 fL Normal 6.2-12.0 [facility] Comment on above: Performed By: #### L 501.2450, [id number], L100.0100 #### [facility] [address] [place], [address] Platelets (Bld) [#/Vol] 230 10*3/uL Normal 150-450 [facility] Comment on above: Performed By: #### L 501.2450, L500.4050, L100.0100 #### [facility] [address] [place], [address] RBC (Bld) [#/Vol] 5.51 10*6/uL Normal 4.6-6.2 [facility] Comment on above: Performed By: #### L 501.2450, L500.4050, L100.0100 #### [facility] [address] [place], [address] RDW SD 41.8 fl Normal 35.1-43.9 [facility] Comment on above: Performed By: #### L 501.2450, [id number], L100.0100 #### [facility] [address] [place], [address] WBC (Bld) [#/Vol] 10.9 10*3/uL Normal 4.4-11.0 [facility] Comment on above: Performed By: #### L 501.2450, L500.4050, L100.0100 #### [facility] [address] [place], [address] Carbon dioxide measurementOr dered By: Catalino Padilla on 11-10-2024 CO2 [Moles/Vol] 23.2 mmol/L 22.0-29.0 [facility] Chloride measurementOrdered By: Catalino Padilla on 11-10-2024 Chloride [Moles/Vol] 103 mmol/L 96-108 [facility] Comprehensive Metabolic Prof ilon 11-10-2024 Albumin [Mass/Vol] 4.0 g/dL Normal 3.5-5.[address] [facility] Comment on above: Performed By: #### L 501.2450, L500.4050, L100.0100 #### [facility] [address] [place], [address] Albumin/Globulin [Mass ratio] 1.3 {ratio} Normal 0.9-2.4 [facility] Comment on above: Performed By: #### L 501.2450, L500.4050, L100.0100 #### [facility] [address] [place], [address] ALK PHOS 72 U/L Normal 40-129 [facility] Comment on above: Performed By: #### L 501.2450, [id number], L100.0100 #### [facility] [address] [place], [address] ALT [Catalytic activity/Vol] 60 U/L High <=46 [facility] Comment on above: Performed By: #### L 501.2450, [id number], L100.0100 #### [facility] [address] [place], [address] Anion gap [Moles/Vol] 12 mmol/L Normal 5-15 [facility] Comment on above: Performed By: #### L 501.2450, [id number], L100.0100 #### [facility] [address] [place], [address] AST [Catalytic activity/Vol] 30 U/L Normal <=37 [facility] Comment on above: Performed By: #### L 501.2450, [id number], L100.0100 #### [facility] [address] [place], [address] Bilirubin [Mass/Vol] 0.46 mg/dL Normal 0.00-1.30 [facility] Comment on above: Performed By: #### L 501.2450, [id number], L100.0100 #### [facility] [address] [place], [address] BUN/CRE 21.3 RATIO High 10-20 [facility] Comment on above: Performed By: #### L 501.2450, L500.4050, L100.0100 #### [facility] [address] [place], [address] Calcium [Mass/Vol] 9.4 mg/dL Normal 7.6-11.[address] [facility] Comment on above: Performed By: #### L 501.2450, [id number], L100.0100 #### [facility] [address] [place], [address] Chloride [Moles/Vol] 103 mmol/L Normal 96-108 [facility] Comment on above: Performed By: #### L 501.2450, L500.4050, L100.0100 #### [facility] [address] [place], [address] CO2 [Moles/Vol] 23.2 mmol/L Normal 22.0-29.0 [facility] Comment on above: Performed By: #### L 501.2450, [id number], L100.0100 #### [facility] [address] [place], [address] Creatinine [Mass/Vol] 0.7 mg/dL Low 0.8-1.3 [facility] Comment on above: Performed By: #### L 501.2450, L500.4050, L100.0100 #### [facility] [address] [place], [address] GFR/1.73 sq M.predicted among non-blacks MDRD (S/P/Bld) [Vol rate/Area] 106 mL/min/{1.73_m2} Normal >60 [facility] Comment on above: Result Comment: mL/m in/1.73m2 CKD-EPI Creatinine Equation (2020) Performed By: #### L 501.2450, L500.4050, L100.0100 #### [facility] [address] [place], [address] Globulin (S) [Mass/Vol] 3.1 g/dL Normal 2.2-4.[address] [facility] Comment on above: Performed By: #### L 501.2450, L500.4050, L100.0100 #### [facility] [address] [place], [address] Glucose [Mass/Vol] 103 mg/dL High 70-[address] [facility] Comment on above: Performed By: #### L 501.2450, L500.4050, L100.0100 #### [facility] [address] [place], [address] Potassium [Moles/Vol] 4.2 mmol/L Normal 3.3-5.1 [facility] Comment on above: Performed By: #### L 501.2450, L500.4050, L100.0100 #### [facility] [address] [place], [address] Sodium [Moles/Vol] 138 mmol/L Normal 133-[address] [facility] Comment on above: Performed By: #### L 501.2450, L500.4050, L100.0100 #### [facility] [address] [place], [address] T PROT 7.0 g/dL Normal 5.9-8.4 [facility] Comment on above: Performed By: #### L 501.2450, L500.4050, L100.0100 #### [facility] [address] [place], [address] Urea nitrogen [Mass/Vol] 16 mg/dL Normal 4-19 [facility] Comment on above: Performed By: #### L 501.2450, L500.4050, L100.0100 #### [facility] [address] [place], [address] Creatinine [Moles/Vol]Ordere d By: Catalino Padilla on 11-10-2024 Creatinine [Mass/Vol] 0.7 mg/dL Low 0.8-1.3 [facility] Eosinophil percentageOrdered By: Catalino Padilla on 11-10-2024 Eosinophils/100 WBC (Bld) 0.7 % 0-5 [facility] Erythrocyte distribution wid th ratioOrdered By: Catalino Padilla on 11-10-2024 Erythrocyte distribution width (RBC) [Ratio] 12.9 % 11.6-14.6 [facility] Erythrocyte distribution wid th standard deviationOrdered By: Catalino Padilla on 11-10-2024 Erythrocyte distribution width (RBC) [Entitic vol] 41.8 fL 35.1-43.9 [facility] GFR/1.73 sq M.predicted kimberly g non-blacks MDRD (S/P/Bld) [Vol rate/Area]Ordered By: Catalino Padilla on 11-10-2024 Estimated GFR (MDRD) Non-Af Amer 106 >60 [facility] Comment on above: mL/min/1.73m2 CKD-EP I Creatinine Equation (2020) Hematocrit Auto (Bld) [Volum e fraction]Ordered By: Catalino Padilla on 11-10-2024 Hematocrit (Bld) [Volume fraction] 48.3 % 40-54 [facility] Hemoglobin measurementOrdere d By: Catalino Padilla on 11-10-2024 Hemoglobin (Bld) [Mass/Vol] 15.5 g/dL 13.0-16.5 [facility] Immature granulocytes/100 WB C Auto (Bld)Ordered By: Catalino Padilla on 11-10-2024 Immature granulocytes/100 WBC (Bld) 0.900 % 0.0-0.9 [facility] Comment on above: IG% - Immature Granu locytes (promyelocytes, myelocytes and metamyelocytes) > 1% indicates that a LEFT SHIFT is Present. Laboratory - Chemistry and C hemistry - challengeOrdered By: Catalino Padilla on 11-10-2024 AST [Catalytic activity/Vol] 30 U/L <38 [facility] Lipaseon 11-10-2024 Lipase [Catalytic activity/Vol] 38 U/L Normal 13-75 [facility] Comment on above: Result Comment: Ellyn harrington note: LIPASE revised reference range effective 22. New Lipase methodology. Expected to produce lower values than the previous assay method. NEW Reference Range: 13 - 75 U/L Performed By: #### L 501.2450, L500.4050, L100.0100 #### [facility] [place], [address] Lipase measurementOrdered By : Catalino Padilla on 11-10-2024 Lipase [Catalytic activity/Vol] 38 U/L 13-75 [facility] Comment on above: Please note:LIPASE r evised reference range effective 22. New Lipase methodology. Expected to produce lower values than the previous assay method. NEW Reference Range: 13 - 75 U/L Lymphocytes Auto (Unsp spec) [#/Vol]Ordered By: Catalino Padilla on 11-10-2024 Lymphocytes (Bld) [#/Vol] 2.68 10*3/uL 0.83-4.51 [facility] Lymphocytes/100 WBC Auto (Un sp spec)Ordered By: Catalino Padilla on 11-10-2024 Lymphocytes/100 WBC (Bld) 24.7 % 19-41 [facility] MCV (mean corpuscular volume ) determinationOrdered By: Catalino Padilla on 11-10-2024 MCV (RBC) [Entitic vol] 87.7 fL 80-94 [facility] Mean corpuscular hemoglobin (MCH) determinationOrdered By: Catalino Padilla on 11-10-2024 MCH (RBC) [Entitic mass] 28.1 pg 27.0-32.0 [facility] Mean corpuscular hemoglobin concentration (MCHC) determinationOrdered By: Catalino Padilla on 11-10-2024 MCHC (RBC) [Mass/Vol] 32.1 g/dL 32-36 [facility] Mean platelet volume determi nationOrdered By: Catalino Padilla on 11-10-2024 Platelet mean volume (Bld) [Entitic vol] 11.2 fL 6.2-12.0 [facility] Monocyte percentageOrdered B y: Catalino Padilla on 11-10-2024 Monocytes/100 WBC (Bld) 6.9 % 0-10 [facility] Neutrophil percentageOrdered By: Catalino Padilla on 11-10-2024 Neutrophils/100 WBC (Bld) 66.3 % 47-70 [facility] Nucleated red blood cell per centageOrdered By: Catalino Padilla on 11-10-2024 Nucleated RBC/100 WBC (Bld) [Ratio] 0 % 0-5 [facility] Platelet countOrdered By: Elver Padilla on 11-10-2024 Platelets (Bld) [#/Vol] 230 10*3/uL 150-450 [facility] RBC Auto (Bld) [#/Vol]Ordere d By: Catalino Padilla on 11-10-2024 RBC (Bld) [#/Vol] 5.51 10*6/uL 4.6-6.2 [facility] Serum globulin measurementOr dered By: Catalino Padilla on 11-10-2024 Globulin (S) [Mass/Vol] 3.1 g/dL 2.2-4.2 [facility] Serum glucose measurement (m ass/volume)Ordered By: Catalino Padilla on 11-10-2024 Glucose [Mass/Vol] 103 mg/dL High 70-[address] [facility] Serum or plasma alanine de la torre otransferase (ALT) measurementOrdered By: Catalino Padilla on 11-10-2024 ALT [Catalytic activity/Vol] 60 U/L High <47 [facility] Serum or plasma albumin karen urement (mass/volume)Ordered By: Catalino Padilla on 11-10-2024 Albumin [Mass/Vol] 4.0 g/dL 3.5-5.[address] [facility] Serum or plasma albumin/glob ulin mass ratioOrdered By: Catalino Padilla on 11-10-2024 Albumin/Globulin [Mass ratio] 1.3 {ratio} 0.9-2.4 [facility] Serum or plasma alkaline carlos sphatase measurementOrdered By: Catalino Padilla on 11-10-2024 ALP [Catalytic activity/Vol] 72 U/L 40-129 [facility] Serum or plasma anion gap de termination (moles/volume)Ordered By: Catalino Padilla on 11-10-2024 Anion gap [Moles/Vol] 12 mmol/L 5-15 [facility] [facility] Serum or plasma calcium karen urement (mass/volume)Ordered By: Catalino Padilla on 11-10-2024 Calcium [Mass/Vol] 9.4 mg/dL 7.6-11.[address] [facility] Serum or plasma potassium me asurementOrdered By: Catalino Padilla on 11-10-2024 Potassium [Moles/Vol] 4.2 mmol/L 3.3-5.1 [facility] Serum or plasma sodium measu rement (moles/volume)Ordered By: Catalino Padilla on 11-10-2024 Sodium [Moles/Vol] 138 mmol/L 133-[address] [facility] Serum or plasma urea nitroge n measurement (mass/volume)Ordered By: Catalino Padilla on 11-10-2024 Urea nitrogen [Mass/Vol] 16 mg/dL 4-19 [facility] Total proteinOrdered By: Talia Padilla on 11-10-2024 Protein [Mass/Vol] 7.0 g/dL 5.9-8.[address] [facility] White blood cell (WBC) count Ordered By: Catalino Padilla on 11-10-2024 WBC (Bld) [#/Vol] 10.9 10*3/uL 4.4-11.0 [facility] Urgent Care Visit Reporton 0 10-31-2024 Urgent Care Visit Report [facility] [address], [address] [place] [address] OFFICE VISIT Date of Service: 10/31/24 MR#: [id number] Acct: [id number] Name: SHARMIN ALCARAZ Rep #: [id number] : 1965 Provider: CAMI epperson Age/Sex: 58/M Location: [facility] Status: Signed Intake Vital Signs 10/31/24 09:39 Height 5 ft 9 in Weight: 186 lb BMI 27.4 BP 128/90 H Blood Pressure Location Lt brachial Position Sitting Respiration 12 Pulse 91 Pulse Source NIBP Temp 97.8 F Temp Source Oral Pulse Oximetry (%) 97 Oxygen Delivery Method room air Intake Visit Reasons: FEVER/COUGH Allergies No Known Allergies Allergy (Verified 10/31/24 09:40) Medications ???Medication ???Instructions ???Recorded ???Confirmed ???Type Simvastatin 20 mg PO DAILY 10/13/14 10/31/24 H istory cetirizine 10 mg capsule (Zyrtec) 10 mg PO DAILY 01/22/18 10/31/24 History amlodipine 5 mg tablet 5 mg PO DAILY 07/16/19 10/31/24 Hi story lisinopril 5 mg tablet 5 mg PO DAILY 07/16/19 10/31/24 Hi story azithromycin 250 mg tablet See Rx Instructions PO .COMPLEX #6 10/31/24 10/31/24 Rx (Zithromax Z-Kishore) tabs prednisone 20 mg tablet 40 mg (2 x 20 mg) PO QDAY 5 days 0 10/31/24 10/31/24 Rx #10 tabs PFSH Social History Smoking Status: Never smoker HPI HPI Details: SHARMIN ALCARAZ, is a 58 M who presents to the office today for fever and cough for the last 2 days. He states for one week he has noted the beginning of symptom. Prior to evaluation, he underwent COVID and flu respiratory testing. ROS Const Constitutional: Positive for chills, fever(s) and change in appetite; No body ache, fatigue or headache(s) Eyes Eyes: No blurry vision, change in vision, double vision, irritation, discharge, vision loss, dry eyes, bulging eyes, floaters, visual disturbances, eye pain, Light sensitivity, spots in vision, tu nnel vision or other ENT ENT: Positive for nasal congestion, sinus pressure, nasal discharge (clear), dental pain, hoarseness and sore throat; No ear or mastoid pain, ear discharge, ear pressure, tinnitus, dizziness/vertigo, nosebleed/epistaxis, nose pain, sinus pain, post nasal drip, headache(s), facial pain, difficulty swallowing, bad breath, lip swelling, mouth lesions, mouth pain, neck pain, tongue swelling or throat swelling Resp Respiratory: Positive for cough (intermittent) Cough: Yes productive and non-productive, chest congestion and shortness of breath (with cough); No change in phlegm color, hemoptysis, pain on inspiration, pain with cough, stridor or wheezing Cardio Cardiology: No chest pain at rest, chest pain with exertion, shortness of breath, dyspnea on exertion or lightheadedness Gastro GI: No abdominal pain, change in bowel habits, constipation, diarrhea, difficulty swallowing, nausea/dyspepsia or vomiting Genitourinary Male: No burning urination or urinary frequency Musc Musculoskeletal: No joint pain or neck pain Skin Skin: No rash Neuro Neurology: No headache(s) or visual disturbances Psych Psychiatric: Positive for change in appetite Endo Endocrine: No fatigue Aller/Imm Allergy/Immunologic: No lip swelling, throat swelling, tongue swelling or wheezing Exam Const General: cooperative, healthy appearing, comfortable and no acute distress Orientation: alert, awake and oriented x3 HENMT Head: normal to inspection and normocephalic Ears: hearing grossly normal bilaterally, external ears normal and TM's normal bilaterally Nose: external nose normal, nares normal and no nasal discharge Face and sinus: normal facial exam and sinuses nontender Mouth: oral mucosae normal, lip normal, tongue normal, oropharynx normal and moist mucous membranes Throat: posterior oropharynx normal, tonsils normal, uvula midline and no postnasal drainage Eyes General: appearance normal, both eyes and all related structures Neck Neck: normal visual inspection and no lymphadenopathy Carotids: normal carotid upstroke Lymphatic: no lymphadenopathy noted Chest Chest palpation inspection: normal inspection of the chest Resp Effort Inspection: normal respiratory effort, able to speak in complete sentences, symmetric chest movement, no cough and no stridor Auscultation: Left: Clear to Auscultation and Right: Inspiratory Wheezes Cardio Rate: regular rate Rhythm: regular rhythm Heart Sounds: S1 normal, S2 normal and no murmurs GI Inspection: normal to inspection Auscultation: normal bowel sounds Palpation: soft Skin General: no rashes or lesions noted Neuro Speech: speech normal Extrem General: normal to inspection and capillary refill normal Coding Level of Care Code Off vis,new,level 3 Diagnoses Upper respiratory tract infection, unspecified type J06.9 URI typ (more content not included)... Normal [facility] Inital Evaluation (1) - PTon 10-01-2024 Inital Evaluation (1) - PT [facility] Physical Therapy [facility] [place] [address] / REHABILITATION SERVICES INITIAL EVALUATION MR#: [id number] Acct: [id number] Name: SHARMIN ALCARAZ Rep #: [id number] : 1965 58 From: Luis Akbar DPT Referring Dr.: Dr. Alvaro Lewis, DO Status: REG RCR Insurance: [facility] SELF PAY INSURANCE Patient's Visit Information Visit Information Visit Information: SHARMIN ALCARAZ is a 58 year old M referred to Physical Therapy by Dr. 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 Date of Evaluation: 09/27/24 Physical Therapist: Luis Akbar DPT Visit Plan Frequency: 1x/Week Duration: 6 Weeks Plan: 1) RTC strengthening, periscapular strengthening. 2) DFM to biceps tendon 3) Progress end range motion of R shoulder. Subjective Subjective: Pt. is here today for his initial evaluation with diagnosis of superior glenoid labrum lesion of R shoulder. Pt. reports having an MRI and having a labral tear. He reports no N/T in either UE. Pt. reports increased pain while sleeping and with over head movements. Pt. is able to work with out much limitation. Pt. reports not doing as much with his shoulder secondary to increased pain. Pt. has refrained from much [place] activities secondary to pain. Pt. reports no major grinding in his shoulder with activities. Pain located at anterior shoulder with above activities. Pt. is hopeful to reduce symptoms in order to complete all work and daily activities without limitations. Pain R shoulder: Pain Intensity (Out of 10): 2 Pain Intensity Range: 2 and 6 Objective Objective: POSTURE: Pt. has fairly normal posture in stance. Pt. has slight increased in thoracic kyphosis and rounded shoulders, but able to improve with VCing. PALPATION: Pt. has tenderness to anterior aspects of R shoulder along long bicipital groove. NEURO: normal throughout. ROM: R shoulder: flexion 170deg increase NW at end range, abd 165deg increase at end range. functional ER C4, functional IR L3. Pt. has mild increase in symptoms with both functional ER/IR motions. R shoulder PROM: flexion 175deg increase NW, abd 175deg increase NW, ER at 90de of abd 85deg, IR at 90deg of abd 40deg increase nW. MMT: R shoulder: flexion 15.4# increase NW, abd 13.9#, ext 23.9#, ER 11.2#, IR 16.8#. Balance/Special Test Scores Quick DASH Score: 11.3625 Goals Goal 1:: LTG: Pt. to be I with HEP. Goal Time Frame: 4-6 Weeks Goal 2:: LTG: Pt. to have full R shoulder ROM without increase in symptoms. Goal Time Frame: 4-6 Weeks Goal 3:: LTG: Pt. to have symmetrical strength between BUEs without increase in symptoms. Goal Time Frame: 4-6 Weeks Goal 4:: LTG: Pt. to complete all work and recreational activities without increase in symptoms. Goal Time Frame: 4-6 Weeks Rehabilitation Potential Physical Therapy Diagnosis: Pt. has signs and symptoms consistent with superior glenoid labral tear. Pt. has some slight loss of end range of motion and some weakness in his R shoulder. He would benefit from PT to address the above limitations progressing back to all recreational and work activities without limitations. Rehabilitation Potential: Good Anticipated Interventions Patient/Client Instruction: Educate patient on: Condition, Plan of Care, Risk Factors and Benefits of Fitness Program For the Purpose of:: To foster healthy habits, To improve decision making, To facilitate caregiver knowledge, To improve self management, To prevent re-injury and To improve ability to perform tasks related to life management Therapeutic Exercise to Include: Strength training, Power training, Postural training, Flexibilty training, Passive ROM, Active ROM and Scapular Strength/Stabilizati on For the Purpose of:: To decrease pain, To increase ROM, To improve nutrient delivery to tissue, To increase oxygenation perfusion, To improve muscle performance and motor function, To improve ability to perform ADL's and To increase tolerance to activity/condition/p osition Text: Thank you for the opportunity to evaluate your patient. For Medicare and Medicare HMO plans, please review the plan of care and approve it. It will need to be FAXED BACK to us at [phone] for Medicare purposes. For Medicare only, by signing this I certify the plan of care. Please let me know if there are questions or concerns regarding this plan of care. Physician Signature: D ate: 10/01/24 1337 CC: Dr. Alvaro Lewis DO; Dr. Catalino Padilla MD CLS Signed Normal [facility] Upper Ext Joint Only(Routine )on 07-26-2024 Upper Ext Joint Only(Routine) [facility] Imaging Services [address] [place], [place] [id number] Upper Ext Joint Only(Routine) MR#: [id number] Acct: [id number] Name: SHARMIN ALCARAZ Rep #: [id number] : 1965 M 58 From: Cody Hernandez MD PCP: Dr. Catalino Padilla MD Status: REG CLI Study: Upper Ext Joint Only(Routine) Date of Exam: 09/25/23 Exam# [id number] Ordering Dr: Catalino Padilla MD [id number] STUDY: MRI RIGHT SHOULDER REASON FOR EXAM: Male, 58 years old. Shoulder injury/shoulder pain. TECHNIQUE: Standardized fat and water weighted pulse sequences were obtained in all 3 orthogonal planes. COMPARISON: Right shoulder radiographs dated 05/27/2024. FINDINGS: There is mild supraspinatus tendinosis without a full-thickness tear (coronal T2 series 6 images 9-13). Normal infraspinatus tendon. Normal subscapularis tendon. Normal teres minor tendon. Normal supraspinatus muscle. Normal infraspinatus muscle. Normal subscapularis muscle. Normal teres minor muscle. There is a tear of the superior glenoid labrum (coronal T2 series 6 images 12-15). Normal glenohumeral articulation. Normal humeral head and visualized proximal humerus. Normal intracapsular long biceps tendon. Normal rotator interval. There is mild hypertrophic acromioclavicular arthrosis with juxta-articular marrow edema (coronal T2 series 6 image 14). There is a Type II morphology (curved), with a neutral orientation. There is trace subacromial-subdelto id bursal fluid. Normal visualized coracohumeral and coracoacromial ligaments. Normal quadrilateral space. Normal axillary space. Normal deltoid muscle. Normal trapezius muscle. MRI/Upper Ext Joint Only(Routine) IMPRESSION: Mild supraspinatus tendinosis without a full-thickness rotator cuff tear. Mild hypertrophic acromioclavicular arthrosis. Minimal subacromial-subdelto id bursitis. Superior glenoid labral tear. Electronically Signed: Cody Hernandez MD at 9:58 EST Reading Location ID and State: [facility] / [place] , Service support , CC: Dr. Catalino Padilla MD Agricultural Production Engineer: Signed Normal [facility] Shoulder min 2 Viewson 05-27 Shoulder min 2 Views [facility] Imaging Services [address] [place], [place] [address] Shoulder min 2 Views MR#: [id number] Acct: [id number] Name: SHARMIN ALCARAZ Rep #: [id number] : 1965 M 58 From: Black Raymond PCP: Dr. Catalino Padilla MD Status: REG CLI Study: Shoulder min 2 Views Date of Exam: 05/27/24 Exam# [id number] Ordering Dr: Catalino Padilla MD [id number] INDICATION: INJURY EXAMINATION/TECHNIQU E: X-RAY - RIGHT XR Shoulder Min 2 Views COMPARISON: No previous relevant examinations for comparison. ____ FINDINGS: SOFT TISSUES: No soft tissue swelling or gas. No radiopaque foreign body. BONES/JOINTS: 1. No acute fracture or subluxation.. Normal alignment. Preservation of the joint space.. No sclerotic or destructive changes observed. 2. There is normal glenohumeral motion. There is normal alignment of the acromioclavicular joint. 3. The clavicle, acromion, scapula and rib cage have normal appearance. RAD/Shoulder min 2 Views IMPRESSION: 1. No fracture malalignment or focal bony or joint space abnormality involving the shoulder.. Electronically Signed: Black Gutiérrez MD at 19:57 EDT , CC: Dr. Catalino Padilla MD Agricultural Production Engineer: Signed Normal [facility] Basic Metabolic Profile (BMP )on 05-26-2024 BUN/CRE 20.0 RATIO Normal 10-20 [facility] Comment on above: Performed By: #### L 500.2500, L500.4100 #### [facility] Laboratory [address] [place], [address] CA,Total 9.0 mg/dL Normal 8.5-10.1 [facility] Comment on above: Performed By: #### L 500.2500, L500.4100 #### [facility] [address] [place], [address] Chloride [Moles/Vol] 106 mmol/L Normal 98-107 [facility] Comment on above: Performed By: #### L 500.2500, L500.4100 #### [facility] [address] [place], [address] CO2 [Moles/Vol] 27.0 mmol/L Normal 21.0-32.0 [facility] Comment on above: Performed By: #### L 500.2500, L500.4100 #### [facility] [address] [place], [address] Creatinine [Mass/Vol] 0.85 mg/dL Normal 0.70-1.30 [facility] Comment on above: Result Comment: The validity of the calculated GFR GFRAA in patients over 70 years has not been determined. Clinical correlation is essential. Performed By: #### L 500.2500, L500.4100 #### [facility] [address] [place], [address] EST GFR - AA 119 mL/min Normal >60 [facility] Comment on above: Result Comment: Afri can Tunisian GFR Calc Performed By: #### L 500.2500, L500.4100 #### [facility] [address] [place], [address] GAP 5 Normal 5-15 [facility] Comment on above: Performed By: #### L 500.2500, L500.4100 #### [facility] [address] [place], [address] GFR/1.73 sq M.predicted among non-blacks MDRD (S/P/Bld) [Vol rate/Area] 98 mL/min/{1.73_m2} Normal >60 [facility] Comment on above: Result Comment: Non- GFR Calc Performed By: #### L 500.2500, L500.4100 #### [facility] [address] [place], [address] Glucose [Mass/Vol] 131 mg/dL High 74-[address] [facility] Comment on above: Result Comment: Fast ing Glucose result greater than or equal to 126 mg/dL suggests DIABETES MELLITUS per A.D.A. criteria. Performed By: #### L 500.2500, L500.4100 #### [facility] [address] [place], [address] Potassium [Moles/Vol] 3.9 mmol/L Normal 3.5-5.1 [facility] Comment on above: Performed By: #### L 500.2500, L500.4100 #### [facility] [address] [place], [address] Sodium [Moles/Vol] 138 mmol/L Normal 136-[address] [facility] Comment on above: Performed By: #### L 500.2500, L500.4100 #### [facility] [address] [place], [address] Urea nitrogen [Mass/Vol] 17 mg/dL Normal 7-18 [facility] Comment on above: Performed By: #### L 500.2500, L500.4100 #### [facility] [address] [place], [address] Lipid Profileon 05-26-2024 Cholesterol [Mass/Vol] 198 mg/dL Normal 200 [facility] Comment on above: Result Comment: <200 mg/dL Desirable 200-240 mg/dL Borderline >240 mg/dL High Risk Performed By: #### L 500.2500, L500.4100 #### [facility] [address] [place], [address] Cholesterol in HDL [Mass/Vol] 46 mg/dL Normal [facility] Comment on above: Result Comment: The drugs N-Acetylcysteine and Metamizole may falsely depress this assay. Reference Range HDL <40 mg/dL Low HDL Cholesterol HDL >or= 60 mg/dL High HDL Cholesterol Performed By: #### L 500.2500, L500.4100 #### [facility] [address] [place], [address] Cholesterol in LDL [Mass/Vol] 119 mg/dL Normal 0-130 [facility] Comment on above: Performed By: #### L 500.2500, L500.4100 #### [facility] [address] [place], [address] Cholesterol in VLDL [Mass/Vol] 33 mg/dL Normal 5-40 [facility] Comment on above: Performed By: #### L 500.2500, L500.4100 #### [facility] [address] [place], [address] Triglyceride [Mass/Vol] 166 mg/dL Normal [facility] Comment on above: Result Comment: The drugs N-Acetylcysteine and Metamizole may falsely depress this assay. Serum Triglycerides Reference Interval Normal <150 mg/dL Borderline high 150 - 199 mg/dL High 200 - 499 mg/dL Very High > or = 500 mg/dL Performed By: #### L 500.2500, L500.4100 #### [facility] [address] [place], [address] Basophil percentageOrdered B y: Catalino Padilla on 07-28-2023 Chloride [Moles/Vol] 105 mmol/L 98-107 [facility] Cholesterol [Mass/Vol] 209 mg/dL <200 [facility] Comment on above: <200 mg/dL Desirable 200-240 mg/dL Borderline >240 mg/dL High Risk Glucose [Mass/Vol] 128 mg/dL 74-[address] [facility] Comment on above: Fasting Glucose resu lt greater than or equal to 126 mg/dL suggests DIABETES MELLITUS per A.D.A. criteria. Potassium [Moles/Vol] 3.7 mmol/L 3.5-5.1 [facility] Sodium [Moles/Vol] 140 mmol/L 136-[address] [facility] Triglyceride [Mass/Vol] 214 mg/dL <[address] [facility] Comment on above: The drugs N-Acetylcy steine and Metamizole may falsely depress this assay.Serum Triglycerides Reference Interval Normal <150 mg/dL Borderline high 150 - 199 mg/dL High 200 - 499 mg/dL Very High > or = 500 mg/dL Laboratory - Chemistry and C hemistry - challengeOrdered By: Catalino Padilla on 07-28-2023 CO2 [Moles/Vol] 29.0 mmol/L 21.0-32.0 [facility] Urea nitrogen/Creatinine [Mass ratio] 15.9 mg/mg 10-20 [facility] No Panel InformationOrdered By: Catalino Padilla on 07-28-2023 Estimated GFR (MDRD) Amer 106 mL/min >60 [facility] Comment on above: GFR Calc Estimated GFR (MDRD) Non-Af Amer 87 mL/min >60 [facility] Comment on above: Non- GFR Calc Thyroid Stimulating Hormone (TSH) 4.73 uIU/mL 0.358-3.74 [facility] Serum or plasma calcium karen urement (mass/volume)Ordered By: Catalino Padilla on 07-28-2023 Calcium [Mass/Vol] 8.5 mg/dL 8.5-10.[address] [facility] Serum or plasma cholesterol in HDL measurement (mass/volume)Ordered By: Catalino Padilla on 07-28-2023 Cholesterol in HDL [Mass/Vol] 46 mg/dL >40 [facility] Comment on above: The drugs N-Acetylcy steine and Metamizole may falsely depress this assay. Reference Range HDL <40 mg/dL Low HDL Cholesterol HDL >or= 60 mg/dL High HDL Cholesterol Serum or plasma cholesterol in VLDL measurement (mass/volume)Ordered By: Catalino Padilla on 07-28-2023 Cholesterol in VLDL [Mass/Vol] 43 mg/dL 5-40 [facility] Serum or plasma creatinine m easurement (mass/volume)Ordered By: Catalino Padilla on 07-28-2023 Creatinine [Mass/Vol] 0.94 mg/dL 0.70-1.30 [facility] Comment on above: The validity of the calculated GFR & GFRAA in patients over 70 years has not been determined. Clinical correlation is essential. Serum or plasma low density lipoprotein (LDL) cholesterol measurement (mass/volume)Ordered By: Catalino Padilla on 07-28-2023 Cholesterol in LDL [Mass/Vol] 120 mg/dL 0-130 [facility] Serum or plasma urea nitroge n measurement (mass/volume)Ordered By: Catalino Padilla on 07-28-2023 Urea nitrogen [Mass/Vol] 15 mg/dL 7-18 [facility] Thin prep Papanicolaou smear with manual screeningOrdered By: Catalino Padilla on 07-28-2023 Thin prep Papanicolaou smear with manual screening 6 5-15 [facility] Basophil percentageOrdered B y: Dr. Padilla on 12-04-2022 Cholesterol [Mass/Vol] 203 mg/dL <200 [facility] Comment on above: <200 mg/dL Desirable 200-240 mg/dL Borderline >240 mg/dL High Risk Triglyceride [Mass/Vol] 195 mg/dL <199 [facility] Comment on above: The drugs N-Acetylcy steine and Metamizole may falsely depress this assay.Serum Triglycerides Reference Interval Normal <150 mg/dL Borderline high 150 - 199 mg/dL High 200 - 499 mg/dL Very High > or = 500 mg/dL Laboratory - Chemistry and C hemistry - challengeOrdered By: Dr. Padilla on 12-04-2022 Free T4 [Mass/Vol] 0.95 ng/dL 0.76-1.[address] [facility] No Panel InformationOrdered By: Dr. Padilla on 12-04-2022 Free Triiodothyronine (T3) pg/dL 3.5 pg/mL 2.18-3.98 [facility] Thyroid Stimulating Hormone (TSH) 5.34 uIU/mL 0.358-3.74 [facility] Serum or plasma cholesterol in HDL measurement (mass/volume)Ordered By: Dr. Padilla on 12-04-2022 Cholesterol in HDL [Mass/Vol] 40 mg/dL >40 [facility] Comment on above: The drugs N-Acetylcy steine and Metamizole may falsely depress this assay. Reference Range HDL <40 mg/dL Low HDL Cholesterol HDL >or= 60 mg/dL High HDL Cholesterol Serum or plasma cholesterol in VLDL measurement (mass/volume)Ordered By: Dr. Padilla on 12-04-2022 Cholesterol in VLDL [Mass/Vol] 39 mg/dL 5-40 [facility] Serum or plasma low density lipoprotein (LDL) cholesterol measurement (mass/volume)Ordered By: Dr. Padilla on 12-04-2022 Cholesterol in LDL [Mass/Vol] 124 mg/dL 0-130 [facility] Basophil percentageOrdered B y: Dr. Padilla on 08-12-2022 Bilirubin [Mass/Vol] 0.60 mg/dL 0.20-1.00 [facility] Comment on above: For patients on eltr ombopag therapy, use of Dimension [place] TBIL is not recommended. Chloride [Moles/Vol] 106 mmol/L 98-107 [facility] Cholesterol [Mass/Vol] 296 mg/dL <200 [facility] Comment on above: <200 mg/dL Desirable 200-240 mg/dL Borderline >240 mg/dL High Risk Glucose [Mass/Vol] 117 mg/dL 74-[address] [facility] Comment on above: Fasting Glucose resu lt from 100 to 125 mg/dL suggests IMPAIRED HOMEOSTASIS per A.D.A. criteria. Potassium [Moles/Vol] 4.0 mmol/L 3.5-5.1 [facility] Protein [Mass/Vol] 7.1 g/dL 6.4-8.[address] [facility] Sodium [Moles/Vol] 137 mmol/L 136-[address] [facility] Testosterone [Mass/Vol] 522.58 ng/dL [facility] Comment on above: CENTRAL 90% REFERENC E RANGES MALE AGE <50 197.44 - 669.58 ng/dL MALE AGE > or = 50 187.72 - 684.19 ng/dL FEMALE AGE <50 8.38 - 35.01 ng/dL FEMALE AGE > or = 50 <7.00 - 35.92 ng/dL Effective as of 04/10/21 Triglyceride [Mass/Vol] 441 mg/dL <199 [facility] Comment on above: The drugs N-Acetylcy steine and Metamizole may falsely depress this assay. TRIGLYCERIDE IS GREATER THAN 400 mg/dL. LDL RESULT IS INVALID AND WILL NOT BE REPORTED.Serum Triglycerides Reference Interval Normal <150 mg/dL Borderline high 150 - 199 mg/dL High 200 - 499 mg/dL Very High > or = 500 mg/dL Laboratory - Chemistry and C hemistry - challengeOrdered By: Dr. Padilla on 08-12-2022 ALP [Catalytic activity/Vol] 85 U/L 45-117 [facility] ALT [Catalytic activity/Vol] 55 U/L 16-61 [facility] CO2 [Moles/Vol] 25.0 mmol/L 21.0-32.0 [facility] Globulin (S) [Mass/Vol] 3.7 g/dL 2.2-4.2 [facility] Urea nitrogen/Creatinine [Mass ratio] 14.7 mg/mg 10-20 [facility] No Panel InformationOrdered By: Dr. Padilla on 08-12-2022 Estimated GFR (MDRD) Amer 105 mL/min >60 [facility] Comment on above: GFR Calc Estimated GFR (MDRD) Non-Af Amer 86 mL/min >60 [facility] Comment on above: Non- GFR Calc Thyroid Stimulating Hormone (TSH) 6.61 uIU/mL 0.358-3.74 [facility] Serum or plasma albumin karen urement (mass/volume)Ordered By: Dr. Padilla on 08-12-2022 Albumin [Mass/Vol] 3.4 g/dL 3.2-5.[address] [facility] Serum or plasma albumin/glob ulin mass ratioOrdered By: Dr. Padilla on 08-12-2022 Albumin/Globulin [Mass ratio] 0.9 {ratio} 0.9-2.4 [facility] Serum or plasma calcium karen urement (mass/volume)Ordered By: Dr. Padilla on 08-12-2022 Calcium [Mass/Vol] 8.7 mg/dL 8.5-10.[address] [facility] Serum or plasma cholesterol in HDL measurement (mass/volume)Ordered By: Dr. Padilla on 08-12-2022 Cholesterol in HDL [Mass/Vol] 38 mg/dL >40 [facility] Comment on above: The drugs N-Acetylcy steine and Metamizole may falsely depress this assay. Reference Range HDL <40 mg/dL Low HDL Cholesterol HDL >or= 60 mg/dL High HDL Cholesterol Serum or plasma cholesterol in VLDL measurement (mass/volume)Ordered By: Dr. Padilla on 08-12-2022 Cholesterol in VLDL [Mass/Vol] [facility] Comment on above: Test not performed Serum or plasma creatinine m easurement (mass/volume)Ordered By: Dr. Padilla on 08-12-2022 Creatinine [Mass/Vol] 0.96 mg/dL 0.70-1.30 [facility] Comment on above: The validity of the calculated GFR & GFRAA in patients over 70 years has not been determined. Clinical correlation is essential. Serum or plasma low density lipoprotein (LDL) cholesterol measurement (mass/volume)Ordered By: Dr. Padilla on 08-12-2022 Cholesterol in LDL [Mass/Vol] [facility] Comment on above: Test not performed Serum or plasma urea nitroge n measurement (mass/volume)Ordered By: Dr. Padilla on 08-12-2022 Urea nitrogen [Mass/Vol] 14 mg/dL 7-18 [facility] Thin prep Papanicolaou smear with manual screeningOrdered By: Dr. Padilla on 08-12-2022 Thin prep Papanicolaou smear with manual screening 29 U/L 15-37 [facility] Thin prep Papanicolaou smear with manual screening 6 5-15 [facility] Whole blood hemoglobin A1c/t otal hemoglobin ratio (mass fraction)Ordered By: Dr. Padilla on 08-12-2022 HbA1c (Bld) [Mass fraction] 5.8 % 3.8-5.6 [facility] Comment on above: Normal < 5.7 % Predi abetic 5.7 - 6.4 % Diabetic >or= 6.5 % Please note range changes. Office Visit: [facility]: head ruddy jim 02-17-2017 Documentation of current medications (procedure) Done Invalid Interpretation Code [facility] Work Phone: Fall risk assessment No Invalid Interpretation Code [facility] Work Phone: Tobacco use HS Never smoker Invalid Interpretation Code [facility] Work Phone: External Other: Preferred Me thod of Contacton 11-03-2014 Patient's prefered method of contact secmsg Invalid Interpretation Code [facility] Work Phone: Lab Report: CBC W/Diff, Auto matedon 10-13-2014 Absolute Neutrophil count 5.9 X10 3/UL Invalid Interpretation Code 2.0-7.7 [facility] Work Phone: Basophils/100 leukocytes 0.2 % Invalid Interpretation Code 0-1 [facility] Work Phone: Eosinophils/100 leukocytes 0.3 % Invalid Interpretation Code 0-5 [facility] Work Phone: Erythrocytes (RBC) 5.65 10*6/uL Invalid Interpretation Code 4.6-6.2 [facility] Work Phone: Hematocrit (HCT) 48.8 % Invalid Interpretation Code 40-54 [facility] Work Phone: Hemoglobin (HGB) 16.5 g/dL Invalid Interpretation Code 13.0-16.5 [facility] Work Phone: Lymphocytes/100 leukocytes 22.8 % Invalid Interpretation Code 19-41 [facility] Work Phone: MCH 29.2 pg Invalid Interpretation Code 27.0-32.0 [facility] Work Phone: MCHC 33.8 G/GL Invalid Interpretation Code 32-36 [facility] Work Phone: MCV 86.4 fL Invalid Interpretation Code 80-94 [facility] Work Phone: Monocytes/100 leukocytes 10.6 % Critically high 0-10 [facility] Work Phone: Neutrophils/100 leukocytes 65.9 % Invalid Interpretation Code 47-70 [facility] Work Phone: Platelets 191 10*3/mm3 Invalid Interpretation Code 150-450 [facility] Work Phone: PMV by Gloria 11.1 fL Invalid Interpretation Code 6.2-12.0 [facility] Work Phone: RDW-CA 2.03 X10 3/ul Invalid Interpretation Code 0.83-4.51 [facility] Work Phone: WBC (Leukocytes) 8.9 10*3/uL Invalid Interpretation Code 4.4-11.0 [facility] Work Phone: Vital Signs Date Time Vital Sign Value Performing Clinician Faci lity 10-31-2024 09:39-0500 Body height 175.[address] Catalino Padilla MD Work Phone: [facility] 10-31-2024 09:39-0500 Body mass index (BMI) [Ratio] 27.4 kg/m2 Dr. Catalino Padilla MD Work Phone: [facility] 10-31-2024 09:39-0500 Body temperature 97.8 [degF] Dr. Catalino Padilla MD Work Phone: [facility] 10-31-2024 09:39-0500 Body weight 84.[address] Catalino Padilla MD Work Phone: [facility] 10-31-2024 09:39-0500 Diastolic blood pressure 90 mm[Hg] Dr. Catalino Padilla MD Work Phone: [facility] 10-31-2024 09:39-0500 Heart rate 91 /min Dr. Catalino Padilla MD Work Phone: [facility] 10-31-2024 09:39-0500 Respiratory rate 12 /min Dr. Catalino Padilla MD Work Phone: [facility] 10-31-2024 09:39-0500 SaO2% (BldA) [Mass fraction] 97 % Dr. Catalino Padilla MD Work Phone: [facility] 10-31-2024 09:39-0500 Systolic blood pressure 128 mm[Hg] Dr. Catalino Padilla MD Work Phone: [facility] 02-17-2017 16:18-0400 BMI (Body Mass Index) 28.06 kg/m2 Carlene Moralesverna LEONG [facility] Work Phone: 02-17-2017 16:18-0400 Body Temperature 98.2 [degF] Carlene Hall DANG [facility] Work Phone: 02-17-2017 16:18-0400 BP Diastolic 78 mm[Hg] Carlene Hall DANG [facility] Work Phone: 02-17-2017 16:18-0400 BP Systolic 122 mm[Hg] Carlene Hall COGNOS [employer] DEVELOPER [facility] Work Phone: 02-17-2017 16:18-0400 Height 175.26 cm Carlene Hall LPN [facility] Work Phone: 02-17-2017 16:18-0400 Pulse (Heart Rate) 76 /min Carlene Hall DANG [facility] Work Phone: 02-17-2017 16:18-0400 Pulse Oximetry 99 % Carlene Hall COGNOS [employer] DEVELOPER [facility] Work Phone: 02-17-2017 16:18-0400 Respiratory Rate 14 /min Carlene Moralesverna LEONG [facility] Work Phone: 02-17-2017 16:18-0400 Weight 86.18 kg Carlene Hall LPN [facility] Work Phone: Encounters Encounter Date Encounter Type Care Provider Facility Start: 11-19-2024 End: 11-19-[address] Catalino Padilla MD Work Phone: [facility] Work Phone: Start: 11-19-2024 End: 11-19-[address] Catalino Padilla MD -Ultrasound, [facility] Work Phone: Start: 11-19-2024 End: 11-19-2024 ambulatory Catalino Padilla Facility:[facility] Start: 11-10-2024 End: 11-10-[address] Catalino Padilla MD Work Phone: [facility] Work Phone: Start: 11-10-2024 End: 11-10-[address] Catalino Padilla MD -Laboratory, [facility] Start: 11-10-2024 End: 11-10-2024 ambulatory Catalino Padilla Facility:[facility] Start: 10-31-2024 End: 10-31-2024 Patient encounter procedure Felipe Richter NP-C [facility] Work Phone: Start: 10-31-2024 End: 10-31-2024 ambulatory Felipe Richter NP Facility:[facility] Start: 09-27-[address] Gordy Lewis DO -Physical Therapy Work Phone: Start: 09-27-2024 End: 09-27-2024 ambulatory Catalino Padilla Facility:[facility] Start: 07-26-2024 End: 07-26-2024 ambulatory Catalino Padilla Facility:[facility] Start: 05-27-2024 End: 05-27-2024 ambulatory Catalino Padilla Facility:[facility] Start: 05-26-2024 End: 05-26-2024 ambulatory Catalino Padilla Facility:[facility] Start: 07-28-2023 End: 07-28-[address] Catalino Padilla Work Phone: [facility] Work Phone: Start: 07-28-2023 End: 07-28-[address] Catalino Padilla Work Phone: [facility]-Laboratory Work Phone: Start: 07-06-2023 Non-patient / Non-visit Dr. Elver Padilla Work Phone: [facility] Start: 07-04-2023 End: 07-04-[address] Catalino Padilla Work Phone: [facility] Work Phone: Start: 07-04-2023 End: 07-04-[address] [facility] Work [facility]: Start: 07-04-2023 Non-patient / Non-visit Dr. Elver Padilla Work Phone: [facility] Start: 12-04-2022 End: 12-04-2022 ambulatory [facility] Work Phone: Start: 12-04-2022 End: 12-04-2022 Patient encounter procedure [facility]-Laboratory Start: 08-12-2022 End: 08-12-2022 Patient encounter procedure [facility] Procedures Date Procedure Procedure Detail Performing Clinician Start: 11-19-[address] Catalino Padilla MD Work Phone: Start: 07-04-2023 Radionuclide imaging of perfusion of myocardium under exercise stress Dr. Catalino Padilla Work Phone: Plan of Treatment Date Care Activity Detail Author Start: 02-17-2017 End: 02-17-2017 Appointment Appointment [facility] Work Phone: Start: 04-13-2015 End: 04-18-2015 Office/outpatient visit, est, level 3 69897 Ofc Vst, Est Level III [facility] Work Phone: Start: 11-03-2014 End: 11-03-2014 X-ray exam of ankle X-Ray, Ankle [facility] Work Phone: Start: 09-28-2014 End: 09-28-2014 X-ray exam of ankle X-Ray, Ankle [facility] Work Phone: Patient Education SINUSITIS [facility] Work Phone: [facility] Payers Date Payer Category Payer Self-pay [id number] 2013 Unknown [id number] Unknown [id number] 2.16.8 [id number] Unknown [id number] 2.16.8 [id number] Unknown [id number] 2.16.8 [id number] Unknown [id number] 2.16.8 [id number] Unknown [id number] 2.16.8 [id number] Unknown [id number] 2.16.8 [id number] Unknown [id number] 2.16.8 [id number] Social History Date Type Detail Facility Start: 07-16-2019 End: 07-16-2019 Tobacco smoking status NHIS Unknown if ever smoked [facility] Start: 1965 Sex Assigned At Male [facility] Start: 10-31-2024 Tobacco smoking stat us MSIS Never smoked tobacco (finding) [facility] Start: 11-24-2024 End: 12-01-2024 Sex Male (finding) [facility] Radiology Diagnostic study note 11-19-2024 Note Date & Type Note Facility 11-19-2024 Radiology Diagnostic study note [facility] Imaging Services [address] [place], [place] [address] Abdomen Complete MR#: [id number] Acct: [id number] Name: SHARMIN ALCARAZ Rep #: [id number] : 1965 M 58 From: Domitila Oreilly MD PCP: Dr. Catalino Padilla MD Status: REG Suellen WARREN Study:Abdomen Complete Date of Exam: 04/08 Exam# [id number] Ordering Dr: Catalino Padilla MD PROCEDURE: ABDOMEN COMPLETE REASON FOR EXAM: ABD PAIN COMPARISON: None FINDINGS: Liver: Unremarkable echotexture. 15.7 cm in length. Gallbladder: Question a tiny amount of layering sludge versus artifact. No visualized stones, sludge, wall thickening or pericholecystic fluid. Reportedly, sonographic Alcaraz's was negative. Common bile duct: Unremarkable, CBD measures 5 mm. Pancreas: Partially obscured by bowel gas. Visualized portions are sonographically unremarkable. Right kidney: 11.2 cm in length. 0.8 x 0.7 x 0.7 cm cyst inferiorly. Left kidney: 10.7 cm in length. Unremarkable. Spleen: Mild splenomegaly, 13.6 cm greatest dimension. Aorta: Unremarkable, maximum diameter 2.4 cm. IVC: Visualized portions are unremarkable. Other: No visualized free fluid. US/Abdomen Complete IMPRESSION: 1. No acute abnormality. If unexplained symptoms persist, consider CT. 2. Mild splenomegaly. 3. Additional description as above. Reading Location: [id number] CC: Dr. Catalino Padilla MD ~ Agricultural Production Engineer: Signed [facility] Evaluation note 10-31-2024 Note Date & Type Note Facility 10-31-2024 Evaluation note Diagnosis Onset Date Resolution URI (upper respiratory infection) acute October 31, 025 9:23am [facility] Work Phone: Progress note 08-23-2021 Note Date & Type Note Facility 08-23-2021 Note HNO ID: [id number] Author: Aris Fournier Population Health Navigator Service: ? Author Type: ? Type: Progress Notes Filed: 08/23/2021 1:14 PM Note Text: POPULATION HEALTH NAVIGATION OUTREACH Action/FYI I left a voice message re: pcp No care everywhere Contact made with patient or family member? NO Pt identified by name and : NO Outreach Outcome/Action Unable to reach patient: Left message Reason for Outreach Attribution: Provider Off-boarding Payer: Payor: MMO / Plan: MMO MHS / Product Type: Indemnity / Care Gap Reviewed:: Reminder: Reminder note to check Health Maintenance for items below Health Maintenance items due: COVID-19 VACCINE(1) Never done HEPATITIS C SCREENING Never done HIV SCREENING Never done BP CONTROLLED (<130/80) Never done SHINGRIX VACCINE(1 of 2) Never done DTAP,TDAP,TD(2 - Td or Tdap) due on 01/03/2019 DEPRESSION SCREENING due on 07/19/2020 INFLUENZA(1) due on 05/16/2021 PROSTATE CANCER SCREENING DISCUSSION due on 06/03/2021 ANNUAL PCP TEAM CHRONIC DISEASE VISIT due on 08/03/2021 Advanced Directives Completed: Have you ever planned for future healthcare decisions with a power of privacy attorney, living will, or advance directives? No. Please bring a copy to your next appointment or email to [email or web address] Referrals: N/A Message Sent to Practice: NO Navigation Signature: Aris Fournier Population Health Navigator August 23, 2021 1:14 PM [facility] Clinical Note 08-23-2021 Note Date & Type Note Facility 08-23-2021 Note Patient Outreach (NE TNAV) SHARMIN ALCARAZ ([id number]) 1965 M Date Time Provider Department 08/23/21 ARIS FOURNIER During your visit today, we recorded the following information about you: Aris Fournier Population Health Navigator 08/23/2021 1:14 PM Signed POPULATION HEALTH NAVIGATION OUTREACH Action/FYI I left a voice message re: pcp No care everywhere Contact made with patient or family member? NO Pt identified by name and : NO Outreach Outcome/Action Unable to reach patient: Left message Reason for Outreach Attribution: Provider Off-boarding Payer: Payor: MMO / Plan: MMO MHS / Product Type: Indemnity / Care Gap Reviewed:: Reminder: Reminder note to check Health Maintenance for items below Health Maintenance items due: COVID-19 VACCINE(1) Never done HEPATITIS C SCREENING Never done HIV SCREENING Never done BP CONTROLLED (<130/80) Never done SHINGRIX VACCINE(1 of 2) Never done DTAP,TDAP,TD(2 - Td or Tdap) due on 01/03/2019 DEPRESSION SCREENING due on 07/19/2020 INFLUENZA(1) due on 05/16/2021 PROSTATE CANCER SCREENING DISCUSSION due on 06/03/2021 ANNUAL PCP TEAM CHRONIC DISEASE VISIT due on 08/03/2021 Advanced Directives Completed: Have you ever planned for future healthcare decisions with a power of privacy attorney, living will, or advance directives? No. Please bring a copy to your next appointment or email to Referrals: N/A Message Sent to Practice: NO Navigation Signature: Aris Fournier Population Health Navigator August 23, 2021 1:14 PM Allergies As of Date: 08/23/2021 Noted Allergy Reaction LISINOPRIL 04/26/2019 14 - Other: See Comments Comments: Cough SEASONAL ALLERGIES 12/08/2017 9 - Itching Date Reviewed: 08/03/2020 Reviewed by: Selene Ngo Ma - Fully Assessed Reason for Visit: Population Health Navigation Outreach [3910] Cmt: Offboarding Prescriptions as of 08/23/2021 - simvastatin (ZOCOR) 20 mg tablet Take 1 tablet by mouth daily at bedtime. - amLODIPine (NORVASC) 5 mg tablet Take 1 tablet by mouth once daily. - CETIRIZINE HCL (ZYRTEC ORAL) Take by mouth as needed. Problem List As Of Date 08/23/2021 Noted Resolved Adjustment disorder with depressed mood [F43.21]04/24/2009 12/08/2017 Impingement syndrome of right shoulder [M75.41] 10/27/2012 01/14/2018 Hyperlipidemia with target LDL less than 100 [E*11/02/2012 Transient vision disturbance of right eye [H53.*10/03/2014 Seasonal allergic rhinitis due to pollen [J30.1]01/14/2018 Plantar fascial fibromatosis of right foot [M72*01/14/2018 Hypertension, essential [I10] 11/27/2018 Cough due to AALIYAH inhibitor [R05.8, T46.4X5A] 04/26/2019 Trigeminal neuralgia [G50.0] 07/19/2019 Encounter Status:Closed [facility], ARIS Love on 08/23/21 [facility] Progress note 12-22-2020 Note Date & Type Note Facility 12-22-2020 Note HNO ID: [id number] Author: Deonna Yip MA Service: ? Author Type: Sign Hanger Supervisor Type: Progress Notes Filed: 12/22/2020 12:53 PM Note Text: Care Gap Reviewed: Controlling Blood Pressure Phone call placed to patient. Pt identified by name and : NO Outreach Outcome/Action: Unable to reach patient: Left message If patient deferred or declined to schedule appointment, please indicate the reason(s): Other Deonna Yip [facility] Clinical Note 12-22-2020 Note Date & Type Note Facility 12-22-2020 Note Patient Outreach (FA MPWS) SHARMIN ALCARAZ ([id number]) 1965 M Date Time Provider Department 12/22/20 DEONNA YIP During your visit today, we recorded the following information about you: Deonna Yip MA 12/22/2020 12:53 PM Signed Care Gap Reviewed: Controlling Blood Pressure Phone call placed to patient. Pt identified by name and : NO Outreach Outcome/Action: Unable to reach patient: Left message If patient deferred or declined to schedule appointment, please indicate the reason(s): Other Deonna Yip Allergies As of Date: 12/22/2020 Noted Allergy Reaction LISINOPRIL 04/26/2019 14 - Other: See Comments Comments: Cough SEASONAL ALLERGIES 12/08/2017 9 - Itching Date Reviewed: 08/03/2020 Reviewed by: Selene Ngo Ma - Fully Assessed Reason for Visit: Appointment [186] Cmt: htn Prescriptions as of 12/22/2020 Sig: SIMVASTATIN 20 MG TABLET Take 1 tablet by mouth daily * AMLODIPINE 5 MG TABLET Take 1 tablet by mouth once d* ZYRTEC ORAL Take by mouth as needed. Problem List As Of Date 12/22/2020 Noted Resolved Adjustment disorder with depressed mood [F43.21]04/24/2009 12/08/2017 Impingement syndrome of right shoulder [M75.41] 10/27/2012 01/14/2018 Hyperlipidemia with target LDL less than 100 [E*11/02/2012 Transient vision disturbance of right eye [H53.*10/03/2014 Seasonal allergic rhinitis due to pollen [J30.1]01/14/2018 Plantar fascial fibromatosis of right foot [M72*01/14/2018 Hypertension, essential [I10] 11/27/2018 Cough due to AALIYAH inhibitor [R05, T46.4X5A] 04/26/2019 Trigeminal neuralgia [G50.0] 07/19/2019 Letter Text Encounter Status:Closed by DEONNA YIP MA on 12/22/20 [facility] Evaluation note Note Date & Type Note Facility Evaluation note No assessment information availa ble [facility] Work Phone: Reason for referral (narrative) Note Date & Type Note Facility Reason for referral (narrative) No reason for referral information available [facility] Work Phone: Summary Purpose Family History No Family History Records FoundNo Family History Records Found Advance Directives No Advanced Directives Records Found Advance Directive Response Recorded Date/ Time Advance Directives No October 13, 2014 4:13pm Living Will Yes July 16 7:00am Power of Bathing Suit Maker Yes July 16, 2019 7:00am Advance Directive Response Recorded Date/ Time Advance Directives No October 13, 2014 3:13pm Living Will Yes July 16 6:00am Power of Bathing Suit Maker Yes July 16, 2019 6:00am Advance Directive Response Recorded Date/ Time Advance Directives No October 9:01am Chief Complaint and Reason for Visit Chief Complaint INT LABS Chief Complaint SOB ON EXERTION SOB ON EXERTION SOB ON EXERTION Chief Complaint Admit Date RIGHT SHOULDER. RX HERE September 27 4:11pm FEVER/COUGH October 31, 2024 9:23am ABD PAIN November 19, 2024 7:21 am Reason for Visit Admit Date URI (upper respiratory infection) 2024 9:23am Additional Source Comments (unrecognized sect ion and content) No Status Records FoundNo Status Records Found INFORMATION SOURCE (unrecogn ized section and content) DATE CREATED AUTHOR 10/09/2021 [facility] DATE CREATED AUTHOR AUTHOR'S ORGANIZ ATION [facility] Teams (unrecognized sec tion and content) Team Status: Active Member Role Status Dates Dr. Juan Pablo Beckman III, MD Family Provider Active Dr. Catalino Padilla MD Primary Care Provider Active Team Status: Inactive Member Role Status Dates Dr. Catalino Padilla MD Primary Care Provider, Attending Provider Active Catalino COOPER Referring Provider Active Team Status: Inactive Member Role Status Dates Dr. Catalino Padilla MD Primary Care Provi robin, Attending Provider, Referring Provider Active Team Status: Active Member Role Status Dates Dr. Catalino Padilla MD Primary Care Provi robin, Referring Provider, Other Provider Active Dr. Sara Lo MD Attending Provider Activ e Team Status: Active Member Role Status Dates Dr. Catalino Padilla MD Primary Care Provider, Referring Provider Active Dr. Sara Lo MD Attending Provider Activ e Team Status: Active Member Role Status Dates Dr. Catalino Padilla MD Primary Care Provider Active Team Status: Active Member Role Status Dates Dr. Catalino Padilla MD Primary Care Provider Active Start: September 27, 2024 Dr. Alvaro Lewis DO Attending Provider Active Start: September 27, 2024 Team Status: Inactive Member Role Status Dates Dr. Catalino Padilla MD Primary Care Provider Active Start: October 31, 2024 End: October 31, 2024 Dr. Catalino Padilla MD Referring Provider Active Start: October 31, 2024 End: October 31, 2024 Felipe Richter RESOURCE CONSERVATION MANAGER, RESOURCE CONSERVATION MANAGER-C Attending Provider Active S tart: October 31, 2024 End: October 31, 2024 Team Status: Inactive Member Role Status Dates Dr. Catalino Padilla MD Primary Care Provider Active Start: November 10, 2024 End: November 10, 2024 Dr. Catalino Padilla MD Attending Provider Active Start: November 10, 2024 End: November 10, 2024 Dr. Catalino Padilla MD Referring Provider Active Start: November 10, 2024 End: November 10, 2024 Team Status: Active Member Role Status Dates Dr. Catalino Padilla MD Primary Care Provider Active Start: November 19, 2024 Dr. Catalino Padilla MD Attending Provider Active Start: November 19, 2024 Dr. Catalino Padilla MD Referring Provider Active Start: November 19, 2024 Team Status: Inactive Member Role Status Dates Dr. Catalino Padilla MD Primary Care Provider Active Start: November 19, 2024 End: November 19, 2024 Dr. Catalino Padilla MD Attending Provider Active Start: November 19, 2024 End: November 19, 2024 Dr. Caatlino Padilla MD Referring Provider Active Start: November 19, 2024 End: November 19, 2024 Goals (unrecognized section and content) Goals may be documented in a n alternate sectionGoals may be documented in an alternate sectionGoals may be documented in an alternate sectionGoals may be documented in an alternate sectionGoals may be documented in an alternate sectionGoals may be documented in an alternate section FOR RECORDS PERTAINING TO PATIENTS WHO ARE OR HAVE BEEN ENROLLED IN A CHEMICAL DEPENDENCY/SUBSTANCEABUSE PROGRAM, SOME INFORMATION MAY BE OMITTED. This clinical summary was aggregated from multiple sources. Caution should be exercised in using it in the provision of clinical care. This summary normalizes information from multiple sources, and as a consequence, information in this document may materially change the coding, format and clinical context of patient data. In addition, data may be omitted in some cases. CLINICAL DECISIONS SHOULD BE BASED ON THE PRIMARY CLINICAL RECORDS. [facility] [employer] [facility]. provides no warranty or guarantee of the accuracy or completeness of information in this document.
[2025-05-20 08:18] LABS: Cholesterol 260 mg/dL (<=200); Low Density Lipoprotein Calc. 173 mg/dL; Triglycerides 235 mg/dL; Very Low Density Lipoprotein 47 mg/dL (5-40); cholesterol:hdl ratio screen 6.45
[2025-05-20 08:22] LABS: AST(SGOT) 24 U/L (<=37); Alanine Aminotransfer ALT/SGPT 31 U/L (<=46); Albumin, Serum 4.0 g/dL (3.5-5.0); Alkaline Phosphatase 76 U/L (40-129); Anion Gap 10 (5-15); BUN 16 mg/dL (4-19); BUN/Creat Ratio 17.0 RATIO (10-20); Calcium,Total 9.1 mg/dL (7.6-11.0); Carbon Dioxide 25.4 mmol/L (21.0-32.0); Chloride 104 mmol/L (98-108); Globulin 2.8 g/dL (2.2-4.2); Glucose 136 mg/dL (70-99); Potassium 4.3 mmol/L (3.3-5.1)
== END | disposition home or self-care (01) ==
LOC: LAB 06:32
PROVIDERS: PCP Family Medicine; Referring Provider Family Medicine; Visit Provider Family Medicine
DX: E78.5 Hyperlipidemia, unspecified (principal)
CPT/HCPCS: 36415; 80053; 80061